=== PATIENT | female | born 1955 | race Caucasian/White ===

== ENCOUNTER 2020-03-13 00:43 | Outpatient (CLI) | payer MEDICARE, SELFPAY ==
[2020-03-13 17:48] LABS: SARS-CoV-2 RNA PCR Negative
== END 2020-03-13 00:44 | disposition home or self-care (01) ==
LOC: ANHCOVIDDT 00:44
PROVIDERS: PCP Family Medicine; Visit Provider Internal Medicine Gastroenterology
DX: Z01.812 Encounter for preprocedural laboratory examination (principal); Z20.828 Contact with and (suspected) exposure to other viral communicable diseases
CPT/HCPCS: 87635; C9803; U0003

== ENCOUNTER 2020-03-16 02:13 | Day surgery (SDC) | payer MEDICARE, SELFPAY ==
[2020-03-09 11:15] VITALS: BMI 31.8
[2020-03-16 07:50] VITALS: BP 145/76; PULSE 95; RESP 16; TEMP 36.7; O2SAT 96; BMI 30.9
[2020-03-16] MEDS: LACTATED RINGERS 1,000 ML 150 ML IV CONT (08:11)
--- NOTE | 2020-03-16 08:11 | WPDANESEPPF ---
Anes - Initial Pre Proc Eval Procedure: Operation Date: 03/16/20 09:00 Proposed Procedures p Screening Colonoscopy - Sven Elizondo MD Date/Time: 03/16/20 08:11 Surgeon: Sven Elizondo MD Pre Op Diagnosis: hx of colon polyps Patient Data Age: 64 Gender: F Height: 5 ft 4 in Weight: 81.6 kg Last Vital Signs Temp 98.0 F 03/16/20 07:50 Pulse 95 03/16/20 07:50 Resp 16 03/16/20 07:50 BP 145/76 H 03/16/20 07:50 Pulse Ox 96 03/16/20 07:50 Allergies Allergy/AdvReac Type Severity Reaction Status Date / Time No Known Allergies Allergy Verified 03/16/20 07:49 Home Medications Medication Instructions Recorded Confirmed Type aspirin 81 mg tablet,delayed 81 mg PO DAILY 10/07/19 03/09/20 History release blood sugar diagnostic #10 each 10/07/19 History calcium carbonate 600 mg calcium 600 mg PO DAILY 10/07/19 03/09/20 History (1,500 mg) tablet cholecalciferol (vitamin D3) 50 50 mcg PO DAILY 10/07/19 03/09/20 History mcg (2,000 unit) capsule fenofibrate nanocrystallized 145 145 mg PO DAILY 90 Days #90 tablet 10/07/19 03/09/20 Rx mg tablet hydroxyurea 500 mg capsule 500 mg PO .COMPLEX 10/07/19 03/09/20 History metformin 1,000 mg tablet 1,000 mg PO DAILY #90 tablet 10/07/19 03/09/20 Rx amlodipine 5 mg tablet 5 mg PO DAILY #90 tablet 11/03/19 03/09/20 Rx irbesartan 300 mg tablet 300 mg PO DAILY #90 tablet 02/04/20 03/09/20 Rx irbesartan mg 03/09/20 History Patient hx anesthesia problems: none Family hx anesthesia problems: none PMFSH Past Medical History Medical History (Updated 03/16/20 @ 08:11 by Tommy Meneses MD) Diabetes FH: colon cancer in relative diagnosed at >50 years old father dx'd & @ 77 y/o son dx'd w/ polyps @ 27 y/o H/O adenomatous polyp of colon (~2009) Hypertension Surgical History Surgical History (Updated 11/24/19 @ 10:09 by Malia Hughes, ) H/O breast biopsy x3: late [id number]' last mammogram: Jan 2019: normal H/O hysterectomy with oophorectomy (~1999) S/P cholecystectomy (~1998) Family History Family History (Updated 11/24/19 @ 10:14 by Malia Hughes, ) Father Carcinoma of colon Sibling , @ 22 y/o Non-Hodgkin's lymphoma, Onset Age: 22 in year of dx 1985 Sibling , dx'd & @ 42 y/o Esophageal cancer Sibling Diabetes mellitus Colon polyp Leukemia, chronic brother: since 2011 Social History Social History (Updated 11/24/19 @ 10:19 by Malia HughesMD) Social History: shingrix (done) hep C (-) pcv 13/ppsv23 (done) tdap (2016) yearly flu vaccine Smoking status: Never smoker Alcohol intake: current Drinks per week: 1 Substance use: never Substance use type: does not use Living arrangements: with family Additional occupation/education comments: education: 40(+): HS x12 years, then community college: math: then administration: GED Gender identity (if verbalized by the patient): Female Sexual Orientation (if Verbalized by the Patient): Straight or Heterosexual Spiritual care concerns: No Agree to blood products: Yes Anes - Eval Final PreProcedure Day of Procedure 03/16/20 08:11 Patient weight: obese Heart: regular rate and rhythm Lungs: clear to auscultation Airway: Mallampati scale class II Neurological: alert and oriented Last oral intake: >/= 8 hours ASA classification: III Emergent: no Anesthetic plan: proceed Anesthesia type and monitoring: general GIVS and standard monitoring Informed Consent: The patient's anesthetic plan and its attendant risks and benefits were discussed with the patient/family/POA. Questions were solicited and answers provided to the satisfaction of the patient/family/POA.
[2020-03-16 08:12] LABS: Glucose Point of Care 157 (65-105)
--- NOTE | 2020-03-16 08:15 | WPDGICN ---
Assessment and Plan Assessment and plan (1) Family history of colon cancer in father: Code(s): Z80.0 - Family history of malignant neoplasm of digestive organs Status: Acute Assessment and Plan: Patient's father had colon cancer. Patient herself has had colon polyps in her son has had colon polyps. For these reasons surveillance colonoscopy is recommended now on at least 5 year intervals in the future. Further recommendations will be given after colonoscopy. (2) Family history of colonic polyps: Code(s): Z83.71 - Family history of colonic polyps Status: Acute (3) History of colon polyps: Code(s): Z86.010 - Personal history of colonic polyps Status: Acute GI Consult Note Consult date/time: 03/16/20 08:15 HPI: Reina Downey is a 64 year old female seen in evaluation at the request of Dr Vasquez . patient presents for screening colonoscopy. She herself has had colon polyps by exam 10 years ago. Most recent colonoscopy 5 years ago was unremarkable. Patient states that her weight appetite bowel movements are normal she denies any blood in her stools. Family history is significant that her father had colon cancer. Her son had colon polyps in his 20s. Review of Systems Review of Systems: All systems reviewed & are unremarkable except as noted in HPI and below PMFSH Past Medical History Medical History Diabetes FH: colon cancer in relative diagnosed at >50 years old father dx'd & @ 77 y/o son dx'd w/ polyps @ 27 y/o H/O adenomatous polyp of colon (~2009) Hypertension Surgical History Surgical History H/O breast biopsy x3: late 5255-0003's last mammogram: Jan 2019: normal H/O hysterectomy with oophorectomy (~1999) S/P cholecystectomy (~1998) Family History Family History (Updated 11/24/19 @ 10:14 by Malia Hughes, ) Father Carcinoma of colon Sibling , @ 22 y/o Non-Hodgkin's lymphoma, Onset Age: 22 in year of dx 1985 Sibling , dx'd & @ 42 y/o Esophageal cancer Sibling Diabetes mellitus Colon polyp Leukemia, chronic brother: since 2011 Social History Social History (Updated 11/24/19 @ 10:19 by Malia Hughes, ) Social History: shingrix (done) hep C (-) pcv 13/ppsv23 (done) tdap (2016) yearly flu vaccine Smoking status: Never smoker Alcohol intake: current Drinks per week: 1 Substance use: never Substance use type: does not use Living arrangements: with family Additional occupation/education comments: education: 40(+): HS x12 years, then community college: math: then administration: GED Gender identity (if verbalized by the patient): Female Sexual Orientation (if Verbalized by the Patient): Straight or Heterosexual Spiritual care concerns: No Agree to blood products: Yes Meds Home Medications and Allergies Home Medications Medication Instructions Recorded Confirmed Type aspirin 81 mg tablet,delayed 81 mg PO DAILY 10/07/19 03/09/20 History release blood sugar diagnostic #10 each 10/07/19 History calcium carbonate 600 mg calcium 600 mg PO DAILY 10/07/19 03/09/20 History (1,500 mg) tablet cholecalciferol (vitamin D3) 50 50 mcg PO DAILY 10/07/19 03/09/20 History mcg (2,000 unit) capsule fenofibrate nanocrystallized 145 145 mg PO DAILY 90 Days #90 tablet 10/07/19 03/09/20 Rx mg tablet hydroxyurea 500 mg capsule 500 mg PO .COMPLEX 10/07/19 03/09/20 History metformin 1,000 mg tablet 1,000 mg PO DAILY #90 tablet 10/07/19 03/09/20 Rx amlodipine 5 mg tablet 5 mg PO DAILY #90 tablet 11/03/19 03/09/20 Rx irbesartan 300 mg tablet 300 mg PO DAILY #90 tablet 02/04/20 03/09/20 Rx irbesartan mg 03/09/20 History Allergies Allergy/AdvReac Type Severity Reaction Status Date / Time No Known Allergies Allergy V
[2020-03-16 09:18] VITALS: BP 139/89; PULSE 90; RESP 31; O2SAT 93
[2020-03-16 09:28] VITALS: BP 142/86; PULSE 87; RESP 20; O2SAT 94
[2020-03-16 09:38] VITALS: BP 137/85; PULSE 81; RESP 22; O2SAT 95
== END 2020-03-16 09:58 | disposition home or self-care (01) ==
PROVIDERS: PCP Family Medicine; Visit Provider Internal Medicine Gastroenterology
PROC: 0DJD8ZZ Inspection of Lower Intestinal Tract, Via Natural or Artificial Opening Endoscopic (ICD-10-PCS; CPT 45378; principal; 2020-03-16 09:00)
DX: Z12.11 Encounter for screening for malignant neoplasm of colon (principal); K62.1 Rectal polyp; I10 Essential (primary) hypertension; E66.9 Obesity, unspecified; Z68.30 Body mass index [BMI] 30.0-30.9, adult; K57.30 Diverticulosis of large intestine without perforation or abscess without bleeding; K64.8 Other hemorrhoids; Z80.0 Family history of malignant neoplasm of digestive organs; Z83.71 Family history of colonic polyps
CPT/HCPCS: 45385; 88305; J2704; J7120

== ENCOUNTER 2020-04-01 10:25 | Outpatient (CLI) | payer MEDICARE, SELFPAY ==
--- NOTE | ~2020-04-01 | MM_ITS ---
EXAMINATION: MM screening imelda BI w eliud HISTORY: Screening TECHNIQUE: Craniocaudal and mediolateral oblique 3-D tomosynthesis images were obtained and synthetic 2-D images were generated. CAD analysis was submitted and interpreted. COMPARISON: Comparison to multiple prior studies sequentially, with oldest reviewed study dated 07/16. BREAST PARENCHYMAL COMPOSITION: There are scattered areas of fibroglandular density. FINDINGS: There is no evidence of suspicious mass, calcification, or architectural distortion to sugg est malignancy in either breast. There has been no suspicious interval change. IMPRESSION: 1. No mammographic evidence of malignancy. 2. Recommend routine screening mammography in one year. BI-RADS Category 1: Negative Reviewed, dictated and finalized at location A.
== END 2020-04-01 10:26 | disposition home or self-care (01) ==
PROVIDERS: PCP Family Medicine; Visit Provider Family Medicine
DX: Z12.31 Encounter for screening mammogram for malignant neoplasm of breast (principal)
CPT/HCPCS: 77063; 77067

== ENCOUNTER 2020-07-02 07:13 | Outpatient (NON) | payer MEDICARE, SELFPAY ==
[2020-07-02 10:48] LABS: Influenza Control Positive
[2020-07-03 18:46] LABS: SARS-CoV-2 RNA PCR Negative
== END 2020-07-02 07:14 ==
LOC: ANHCOVIDDT 07:13
PROVIDERS: PCP Family Medicine; Visit Provider Family Medicine
DX: Z20.822 Contact with and (suspected) exposure to COVID-19 (principal); R50.9 Fever, unspecified
CPT/HCPCS: 87804; C9803; U0003; U0005

== ENCOUNTER 2021-06-13 09:11 | Outpatient (CLI) | payer MEDICARE, SELFPAY ==
--- NOTE | ~2021-06-13 | MM_ITS ---
EXAMINATION: MM screening imelda BI w eliud HISTORY: Screening TECHNIQUE: Craniocaudal and mediolateral oblique 3-D tomosynthesis images were obtained and synthetic 2-D images were generated. CAD analysis was submitted and interpreted. COMPARISON: Comparison to multiple prior studies sequentially, with oldest reviewed study dated 07/16. BREAST PARENCHYMAL COMPOSITION: There are scattered areas of fibroglandular density. FINDINGS: There is no evidence of suspicious mass, calcification, or architectural distortion to sugg est malignancy in either breast. There has been no suspicious interval change. IMPRESSION: 1. No mammographic evidence of malignancy. 2. Recommend routine screening mammography in one year. BI-RADS Category 1: Negative Reviewed, dictated and finalized at location A. 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
--- NOTE | ~2021-06-13 | DEXA_ITS ---
Bone Density Report Name: ANTOINETTE LANDRY Age: 65 Sex: Female Ethnicity: White Date of : 1955 Indication: osteopenia; height loss; prior fracture; hysterectomy; postmenopausal Referring Provider: Charity Limon Study: Bone densitometry was performed. Exam Date: June 13, 2021 Accession number: [id number] Bone Density: Region BMD T-score Z-score Classification AP Spine (L1-L4) 0.930 -1.1 0.9 Osteopenia Femoral Neck (Left) 0.929 0.7 2.4 Normal Total Hip (Left) 0.925 -0.1 1.2 Normal Total Hip Bilateral Avg 0.905 -0.3 1.0 Normal Femoral Neck (Right) 0.781 -0.6 1.0 Normal Total Hip (Right) 0.884 -0.5 0.9 Normal World Health Organization criteria for BMD impression classify patients as: Normal (T-score at or above -1.0), Osteopenia (T-score between -1.0 and -2.5), or Osteoporosis (T-score at or below -2.5). 10-year Fracture Risk(1): Major Osteoporotic Fracture 12% Hip Fracture 0.7% Reported Risk Factors: [place] (), Neck BMD=0.781, BMI=32.8, previous fracture (1) FRAX(R) Version 3.08. Fracture probability calculated for an untreated patient. Fracture probability may be lower if the patient has received treatment. Previous Exams: Region Exam Age BMD T-score BMD Change BMD Change Date g/cm2 vs Baseline vs Previous AP Spine(L1-L4) 06/13/2021 65 0.930 -1.1 0.005(0.5%)# 0.045(5.0%)* 02/24/2019 63 0.885 -1.5 -0.040(-4.3%)# -0.062(-6.5%)# 01/21/2016 60 0.947 -0.9 0.022(2.4%)# 0.007(0.8%)# 03/28/2013 57 0.940 -1.0 0.015(1.6%)# -0.046(-4.7%)# 01/24/2008 52 0.986 -0.6 0.061(6.6%)* 0.061(6.6%)* 12/09/2004 49 0.925 -1.1 Total Hip(Left) 06/13/2021 65 0.925 -0.1 0.012(1.3%)# -0.043(-4.5%)* 02/24/2019 63 0.968 0.2 0.055(6.1%)# 0.040(4.3%)# 01/21/2016 60 0.928 -0.1 0.015(1.7%)# -0.032(-3.3%)# 03/28/2013 57 0.960 0.1 0.047(5.2%)# 0.019(2.1%)# 01/24/2008 52 0.941 0.0 0.028(3.1%)* 0.028(3.1%)* 12/09/2004 49 0.913 -0.2 Total Hip(Right) 06/13/2021 65 0.884 -0.5 0.024(2.7%)# -0.034(-3.7%)* 02/24/2019 63 0.919 -0.2 0.058(6.7%)# 0.040(4.6%)# 01/21/2016 60 0.878 -0.5 0.018(2.0%)# -0.012(-1.4%)# 03/28/2013 57 0.891 -0.4 0.030(3.5%)# 0.003(0.4%)# 01/24/2008 52 0.887 -0.4 0.027(3.1%) 0.027(3.1%) 12/09/2004 49 0.861 -0.7 *Denotes significance at 95% confidence level, LSC for AP Spine = 0.022 g/cm2, LSC for Total Hip = 0.027 g/cm2 Clinical Information Provided by Patient:
== END 2021-06-13 09:12 | disposition home or self-care (01) ==
LOC: ANHIMG 09:14
PROVIDERS: PCP Family Medicine; Visit Provider Nurse Practitioner
DX: Z12.31 Encounter for screening mammogram for malignant neoplasm of breast (principal); Z78.0 Asymptomatic menopausal state; M85.88 Other specified disorders of bone density and structure, other site
CPT/HCPCS: 77063; 77067; 77080

== ENCOUNTER → 2021-12-06 09:14 | Outpatient (CLI) | payer MEDICARE, SELFPAY ==
--- NOTE | ~2021-12-06 | US_ITS ---
EXAMINATION: US abdomen complete DATE: 12/06/2021 09:39 INDICATION: Polycythemia vera TECHNIQUE: Multiple grayscale and Doppler ultrasound images of the abdomen were obtained. COMPARISON: 07/17/2017 FINDINGS: The head and body of the pancreas are normal. The pancreatic tail is obscured by bowel gas. The liver is normal with normal echogenicity and echotexture. No surface nodularity. Normal hepatope loly flow in the main portal vein. The gallbladder is surgically absent. The common bile duct measures 7 mm. The visualized portions of the aorta and inferior vena cava are normal. The right kidney measures 11.2 x 4.7 x 5.1 cm and contains a 3.3 cm cyst. The left kidney measures 11 .6 x 5 x 5.1 cm and contains a 2 cm cyst. The kidneys demonstrate normal parenchymal echogenicity. Th ere is no hydronephrosis. The spleen measures 14.5 cm. IMPRESSION: 1. Mild splenomegaly Reviewed, dictated and finalized at location A. IMPRESSION: 1. Mild splenomegaly
== END ==
PROVIDERS: PCP Family Medicine; Visit Provider Internal Medicine Medical Oncology
DX: R16.2 Hepatomegaly with splenomegaly, not elsewhere classified (principal); R16.1 Splenomegaly, not elsewhere classified
CPT/HCPCS: 76700

== ENCOUNTER → 2022-08-04 14:50 | Outpatient (CLI) | payer MEDICARE, SELFPAY ==
--- NOTE | ~2022-08-04 | MM_ITS ---
EXAMINATION: MM screening imelda BI w eliud HISTORY: Screening mammogram TECHNIQUE: Craniocaudal and mediolateral oblique 3-D tomosynthesis images were obtained and synthetic 2-D images were generated. CAD analysis was submitted and interpreted. COMPARISON: 06/13/2021, 04/01/2020, 03/06/2019 bilateral screening mammogram examinations BREAST PARENCHYMAL COMPOSITION: The breasts are almost entirely fatty. FINDINGS: There is no evidence of suspicious mass, calcification, or architectural distortion to sugg est malignancy in either breast. There has been no suspicious interval change. IMPRESSION: 1. No mammographic evidence of malignancy. 2. Recommend routine screening mammography in one year. BI-RADS Category 1: Negative Reviewed, dictated and finalized at location A. 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
== END ==
PROVIDERS: PCP Family Medicine; Visit Provider Nurse Practitioner
DX: Z12.31 Encounter for screening mammogram for malignant neoplasm of breast (principal)
CPT/HCPCS: 77063; 77067

== ENCOUNTER 2023-10-22 12:34 | Outpatient (CLI) | payer MEDICARE, SELFPAY ==
--- NOTE | ~2023-10-22 | MM_ITS ---
EXAMINATION: MM screening imelda BI w eliud HISTORY: Screening mammogram TECHNIQUE: Craniocaudal and mediolateral oblique 3-D tomosynthesis images were obtained and synthetic 2-D images were generated. CAD analysis was submitted and interpreted. COMPARISON: August 04, 2022, June 13, 2021 bilateral screening mammogram examinations BREAST PARENCHYMAL COMPOSITION: The breasts are almost entirely fatty. FINDINGS: There is no evidence of suspicious mass, calcification, or architectural distortion to sugg est malignancy in either breast. There has been no suspicious interval change. IMPRESSION: 1. No mammographic evidence of malignancy. 2. Recommend routine screening mammography in one year. BI-RADS Category 1: Negative Reviewed, dictated and finalized at location B.
== END 2023-10-22 12:35 ==
LOC: MICIMG 12:35
PROVIDERS: PCP Nurse Practitioner Family; Visit Provider Nurse Practitioner Family
DX: Z12.31 Encounter for screening mammogram for malignant neoplasm of breast (principal)
CPT/HCPCS: 77063; 77067

== ENCOUNTER 2025-01-14 15:12 | Outpatient (CLI) | payer MEDICARE, SELFPAY ==
--- NOTE | ~2025-01-14 | MM_ITS ---
EXAMINATION: MM screening imelda BI w eliud HISTORY: Screening TECHNIQUE: Craniocaudal and mediolateral oblique 3-D tomosynthesis images were obtained and synthetic 2-D images were generated. CAD analysis was submitted and interpreted. COMPARISON: Comparison to multiple prior studies sequentially, with oldest reviewed study dated 07/16. BREAST PARENCHYMAL COMPOSITION: Not dense: There are scattered areas of fibroglandular density. FINDINGS: There is no evidence of suspicious mass, calcification, or architectural distortion to sugg est malignancy in either breast. There has been no suspicious interval change. IMPRESSION: 1. No mammographic evidence of malignancy. 2. Recommend routine screening mammography in one year. BI-RADS Category 1: Negative Reviewed, dictated and finalized at location B.
--- OUTSIDE RECORDS SUMMARY | 2025-01-14 15:15 | XMS_ITS | Clinical Summary ---
Author Organization [facility] Address [address] [facility] [place] [address] Phone Care Team Providers Care Assembler Utility Buildings Name Role Phone Henrique Vasquez MD Primary Care Provider Pepe Campbell DO Unavailable [phone] Allergies No known active allergies Medications calcium carbonate-vi tamin D3 600 mg calcium- 200 unit capsule 07/18/2017Calcium 500 + d, po solid 500 mg-400 TabletPOdailyCurrent Medication 2017 Active flaxseed 1,000 mg capsule 07/18/2017Flaxseed-fish -borage oil, po solid 400-400 mg CapsulePOdailyCurrent Medication 2017 Active amLODIPine (NORVASC) 10 mg tablet 2017 Active Lactobac no.41-Bifido bact no.7 70 mg (3 billion cell) capsule 2017 Active turmeric-her bal complex no.278 150 mg capsule 07/18/2017Turmeric (curcumin), po solid Capsule(s)POdailyCurren t Medication 2017 Active cholecalcife rol (VITAMIN D-3) 400 unit capsule 07/18/2017Vitamin d, po solid 400 unit TabletPOdailyCurrent Medication 2017 Active Accu-Chek SmartView Test Strip strip USE ONE STRIP TO CHECK LEVELS DAILY 2019 Active metoprolol XL (TOPROL-XL) 100 mg 24 hr tablet Take 1 tablet (100 mg total) by mouth daily 2020 Active aspirin 81 mg enteric coated tablet Take by mouth Active metFORMIN XR (GLUCOPHAGE XR) 500 mg 24 hr tablet Take 2 tablets (1,000 mg total) by mouth 2 (two) times a day 2023 Active hydroxyurea (HYDREA) 500 mg capsule TAKE 2 CAPSULES (1,000 MG TOTAL) BY MOUTH DAILY 180 capsule 1 2024 Active hydroxyurea (HYDREA) 500 mg capsule Take 2 capsules (1,000 mg total) by mouth daily 180 capsule 1 01/12 Discontinued Active Problems Problem Noted Date Diagnosed Date Essential hypertension 10/15/2018 Polycythemia vera 11/30/2017 Polycythemia 10/30/2017 Overview (10/30/2017): Dx 09/2009 intermittent phlebotomies Q 3 months with daily low dose aspirin therapy Abnormal liver function tests 11/16/2014 Type 2 diabetes mellitus 11/16/2014 Encounters Date Type Department Care Team Description 12/03/2024 2:00 PM CDT Lab [facility] at [address] [address] Polycythemia vera (HCC) 11/05/2024 2:30 PM CDT Infusion [facility] [place] at [address] [place] [address] Polycythemia (Primary Dx); Polycythemia vera (HCC) 11/05/2024 2:00 PM CDT Lab [facility] [address] [address] Polycythemia vera (HCC) from Last 3 Months Immunizations Immunization Administration Dates Next Due Influenza, Trivalent, Adjuva nted, Intramuscular 04/01/2019 Influenza, Unspecified 03/23/2021,2019,04/19/2018,04/05,04/05/2016,04/05/2015 Moderna SARS-CoV-2 Monovalen t Vaccination (12+ YRS) 04/12/2021,09/06/2020,08/04/2020 Pneumococcal Conjugate, Unspecified 04/05/2017,1 ZOSTER LIVE 04/05/2015 ZOSTER Recombinant 04/28/2019 Surgical History Surgery Date Site/Laterality Comments CHOLECYSTECTOMY HYSTERECTOMY BREAST BIOPSY COLONOSCOPY Medical History Medical History Date Comments Polycythemia rubra vera (HCC) Diabetes mellitus (HCC) pre diab etic Hypertension Family History Medical History Relation Name Comments Esophageal cancer Brother Colon cancer Father Diabetes Mother Stomach cancer Paternal Grandmother Non-Hodgkin's Lymphoma Sister Relation Name Status Comments Brother Father Mother Paternal Grandmother Sister Social History Tobacco Use Types Packs/Day Years Used Date Smoking Tobacco: Former Cigarettes 0.3 15 1 549 - 1973 Smokeless Tobacco: Never Tobacco Cessation:Counseling Given: Yes Alcohol Use Standard Drinks/Week Comments Yes 0 (1 standard drink = 0.6 oz pur e alcohol) rarely AUDIT-C Answer Date Recorded Q1: How often do you have a drink containing alcohol? Never 11/30/2023 Q2: How many drinks containi ng alcohol do you have on a typical day when you are drinking? Patient does not drink Q3: How often do you have si x or more drinks on one occasion? Never 11/30/2023 Comments Unknown Sex and Gender Information Value Date Recorded Sex Assigned at Not on file Legal Sex Female 8:08 AM CDT Gender Identity Female 12/04/2017 7:44 AM CDT Sexual Orientation Not on file Obstetrics History Last Filed Vital Signs Vital Sign Reading Time Taken Comments Blood Pressure 130/70 11/05/2024 3:12 PM CDT Pulse 67 11/05/2024 3:12 PM CDT Temperature 37.3 C (99.1 F) 11/05/2024 3:12 PM CDT Respiratory Rate 18 11/05/2024 3:12 PM CDT Oxygen Saturation 97% 11/05/2024 3:12 PM CDT Inhaled Oxygen Concentration - - Weight 82.4 kg (181 lb 9.6 oz) 10/08/2024 2:13 P M CDT w/shoes Height 160.7 cm (5' 3.25) 06/20/2024 2:10 PM CS T w/o shoes Body Mass Index 31.92 06/20/2024 2:10 PM WEATHER ANCHOR Plan of Treatment Health Maintenance Due Date Last Done Comments Colon Cancer Screening-Colonoscopy 1955 Depression Screening 1953 Fall Risk Assessment 1955 Hepatitis C Screening 1955 Osteoporosis Screening-Bone Density Scan 1955 Dilated Eye Exam 1953 Foot Exam 1953 DTaP/Tdap/Td Vaccine (1 - Tdap) 1964 Hepatitis B Screening 10/25/1971 Breast Cancer Screening-Mammogram 04/18/2017 04/18/2016, 04/18/2016, 04/13/2015, Additional history exists Pneumococcal vaccine 65+ (2 of 2 - PPSV23) 05/31/2017 04/05/2017, 04/05/2016 Well Visit 65+ 2018 Zoster Vaccine (2 of 2) 06/23/2019 04/28/2019, 04/05 Hemoglobin A1C 12/27/2022 06/29/2022 Albumin Creatinine Ratio, Urine 06/29/2023 3 Lipid Panel 06/29/2023 06/29/2022 eGFR 06/29/2023 06/29/2022, 04/2 12/2021, 08/31/2021, Additional history exists Covid-19 Vaccine (2023-2 5 season) 2024 04/12/2021, 09/06/2020, 08/04/2020 Influenza Vaccine (#1) 2025 , 03/19/2020, 04/01/2019, Additional history exists Procedures Procedure Name Priority Date/Time Associated Diagnosis Comments DIFFERENTIAL AUTO Routine 12/03/2024 2:0 6 PM CDT Polycythemia vera (HCC) CBC WITH AUTO DIFFERENTIAL Routine 12/03/2024 2:06 PM CDT Polycythemia vera (HCC) DIFFERENTIAL AUTO Routine 11/05/2024 1:5 9 PM CDT Polycythemia vera (HCC) CBC WITH AUTO DIFFERENTIAL Routine 11/05/2024 1:59 PM CDT Polycythemia vera (HCC) COMPREHENSIVE METABOLIC PANEL Routine 06/29/2022 9:04 AM WEATHER ANCHOR HEMOGLOBIN A1C Routine 06/29/2022 9:04 AM WEATHER ANCHOR LIPID PANEL Routine 06/29/2022 9:04 AM WEATHER ANCHOR ALBUMIN CREATININE RATIO, URINE Routine 06/29/2022 9:04 AM WEATHER ANCHOR from Last 3 Months or Most Recently Relevant to Health Maintenance Results * Differential, auto (12/03/2024 2:06 PM CDT) Neutrophil abs 6.43 1.50 - 6.50 K/[facility]umm Comment:Testing performed by : [address] [address] Imm gran abs 0.04 0.00 - 0.10 K/cumm [facility] Comment:Testing performed by : [address] [address] Lymphocyte abs 0.96 0.80 - 3.30 K/cumm [facility] Comment:Testing performed by : [address] [address] Monocyte abs 0.25 0.20 - 0.80 K/cumm [facility] Comment:Testing performed by : [address] [address] Eosinophil abs 0.18 0.00 - 0.50 K/cumm [facility] Comment:Testing performed by : [address] [address] Basophil abs 0.04 0.00 - 0.10 K/cumm [facility] Comment:Testing performed by : [address] [address] Neutrophil pct 81.3 % [facility] Comment: Interpretive Data Percent cell count reference ranges are not reported, since discordance with absolute values may lead to misinterpretation of CBC data. Current Interpretive Data was last revised on 2017. Testing performed by: [address] [address] Imm gran pct 0.5 % [facility] Comment: Interpretive Data Percent cell count reference ranges are not reported, since discordance with absolute values may lead to misinterpretation of CBC data. Current Interpretive Data was last revised on 2017. Testing performed by: [address] [address] Lymphocyte pct 12.2 % [facility] Comment: Interpretive Data Percent cell count reference ranges are not reported, since discordance with absolute values may lead to misinterpretation of CBC data. Current Interpretive Data was last revised on 2017. Testing performed by: [address] [address] Monocyte pct 3.2 % [facility] Comment: Interpretive Data Percent cell count reference ranges are not reported, since discordance with absolute values may lead to misinterpretation of CBC data. Current Interpretive Data was last revised on 2017. Testing performed by: [address] [address] Eosinophil pct 2.3 % [facility] Comment: Interpretive Data Percent cell count reference ranges are not reported, since discordance with absolute values may lead to misinterpretation of CBC data. Current Interpretive Data was last revised on 2017. Testing performed by: [address] [address] Basophil pct 0.5 % [facility] Comment: Interpretive Data Percent cell count reference ranges are not reported, since discordance with absolute values may lead to misinterpretation of CBC data. Current Interpretive Data was last revised on 2017. Testing performed by: [address] [address] Blood 12/03/2024 2:06 PM CDT 12/03/2024 2:10 PM CDT us Pepe Campbell DO LAB BLOOD ORDERABLES Final R esult [facility] [address] [facility] [place] [address] * (ABNORMAL) CBC with auto differential (12/03/2024 2:06 PM CDT) WBC 7.90 3.80 - 9.90 [facility] Comment:Testing performed by : [address] [address] Hgb 11.7(L) 11.9 - 15.5 g/dL [facility] Comment:Testing performed by : [address] [address] Hct 41.5 35.6 - 45.5 % [facility] Comment:Testing performed by : [address] [address] Plt 273 150 - 400 K/cumm [facility] Comment:Testing performed by : [address], [address] MPV 9.2 9.1 - 12.3 fL [facility] Comment:Testing performed by : [address], [address] RBC 5.74(H) 3.90 - 5.20 M/cumm [facility] Comment:Testing performed by : [address] [address] MCV 72.3(L) 81.3 - 96.4 fL [facility] Comment:Testing performed by : [address] [address] MCH 20.4(L) 27.1 - 33.3 pg [facility] Comment:Testing performed by : [address] [address] MCHC 28.2(L) 32.3 - 35.7 g/dL [facility] Comment:Testing performed by : [address], [address] RDW CV 18.6(H) 11.1 - 14.9 % [facility] Comment:Testing performed by : [address] [address] RDW SD 44.7 35.7 - 48.1 fL [facility] Comment:Testing performed by : [address] [address] NRBC abs 0.00 0.00 - 0.01 K/cumm [facility] Comment:Testing performed by : [address], [address] ANC Prelim 6.43 1.50 - 6.50 K/cumm [facility] Comment: Interpretive Data The rapid ANC is a preliminary automated count and may vary from the final ANC (Neut Abs) reported in the WBC differential that follows. Current interpretive data was last revised 2024. Testing performed by: [address] [address] Blood 12/03/2024 2:06 PM CDT 12/03/2024 2:10 PM CDT us Pepe Campbell DO LAB BLOOD ORDERABLES Final R esult [facility] [address] [facility] Department [place] [address] * Differential, auto (11/05/2024 1:59 PM CDT) Neutrophil abs 6.39 1.50 - 6.50 [facility] Comment:Testing performed by : [address] [address] Imm gran abs 0.03 0.00 - 0.10 K/cumm [facility] Comment:Testing performed by : [address] [address] Lymphocyte abs 1.15 0.80 - 3.30 K/cumm [facility] Comment:Testing performed by : [address] [address] Monocyte abs 0.35 0.20 - 0.80 K/cumm [facility] Comment:Testing performed by : [address] [address] Eosinophil abs 0.23 0.00 - 0.50 K/cumm [facility] Comment:Testing performed by : [address] [address] Basophil abs 0.04 0.00 - 0.10 K/cumm [facility] Comment:Testing performed by : [address] [address] Neutrophil pct 78.0 % [facility] Comment: Interpretive Data Percent cell count reference ranges are not reported, since discordance with absolute values may lead to misinterpretation of CBC data. Current Interpretive Data was last revised on 2017. Testing performed by: [address] [address] Imm gran pct 0.4 % [facility] Comment: Interpretive Data Percent cell count reference ranges are not reported, since discordance with absolute values may lead to misinterpretation of CBC data. Current Interpretive Data was last revised on 2017. Testing performed by: [address] [address] Lymphocyte pct 14.0 % [facility] Comment: Interpretive Data Percent cell count reference ranges are not reported, since discordance with absolute values may lead to misinterpretation of CBC data. Current Interpretive Data was last revised on 2017. Testing performed by: [address] [address] Monocyte pct 4.3 % [facility] Comment: Interpretive Data Percent cell count reference ranges are not reported, since discordance with absolute values may lead to misinterpretation of CBC data. Current Interpretive Data was last revised on 2017. Testing performed by: [address] [address] Eosinophil pct 2.8 % [facility] Comment: Interpretive Data Percent cell count reference ranges are not reported, since discordance with absolute values may lead to misinterpretation of CBC data. Current Interpretive Data was last revised on 2017. Testing performed by: [address] [address] Basophil pct 0.5 % [facility] Comment: Interpretive Data Percent cell count reference ranges are not reported, since discordance with absolute values may lead to misinterpretation of CBC data. Current Interpretive Data was last revised on 2017. Testing performed by: [address] [address] Blood 11/05/2024 1:59 PM CDT 11/05/2024 2:04 PM CDT us Pepe Campbell DO LAB BLOOD ORDERABLES Final R esult [facility] [address] [facility] Department [place] [address] * (ABNORMAL) CBC with auto differential (11/05/2024 1:59 PM CDT) [facility] Signature WBC 8.19 3.80 - 9.90 [facility] Comment:Testing performed by : [address] [address] Hgb 12.4 11.9 - 15.5 g/dL [facility] Comment:Testing performed by : [address], [address] Hct 43.6 35.6 - 45.5 % [facility] Comment:Testing performed by : [address] [address] Plt 220 150 - 400 K/cumm [facility] Comment:Testing performed by : [address] [address] MPV 9.9 9.1 - 12.3 fL [facility] Comment:Testing performed by : [address] [address] RBC 6.10(H) 3.90 - 5.20 M/cumm [facility] Comment:Testing performed by : [address] [address] MCV 71.5(L) 81.3 - 96.4 fL [facility] Comment:Testing performed by : [address] [address] MCH 20.3(L) 27.1 - 33.3 pg [facility] Comment:Testing performed by : [address] [address] MCHC 28.4(L) 32.3 - 35.7 g/dL [facility] Comment:Testing performed by : [address] [address] RDW CV 19.1(H) 11.1 - 14.9 % [facility] Comment:Testing performed by : [address], [address] RDW SD 44.6 35.7 - 48.1 fL [facility] Comment:Testing performed by : [facility], [address] [place] [address]., [address] NRBC abs 0.00 0.00 - 0.01 K/cumm [facility] Comment:Testing performed by : [address] [address] ANC Prelim 6.39 1.50 - 6.50 K/cumm [facility] Comment: Interpretive Data The rapid ANC is a preliminary automated count and may vary from the final ANC (Neut Abs) reported in the WBC differential that follows. Current interpretive data was last revised 2024. Testing performed by: [address] [address] Blood 11/05/2024 1:59 PM CDT 11/05/2024 2:04 PM CDT Pepe Campbell DO LAB BLOOD ORDERABLES Final R esult [facility] [address] [facility] Department [place] [address] * (ABNORMAL) Albumin Creatinine Ratio, Urine (06/29/2022 9:04 AM WEATHER ANCHOR) Pathologist [facility] Creatinine, ur 40 20 - 275 mg/dL [facility] Microalbumin, ur 6.5 See Note: mg/dL [facility] Comment: Reference Range: Reference Range Not established Microalbumin/creat ratio 163(H) <30 mcg/mg creat [facility] Comment: The ADA defines abnormalities in albumin excretion as follows: Albuminuria Category Result (mcg/mg creatinine) Normal to Mildly increased <30 Moderately increased 30-299 Severely increased > OR = 300 The ADA recommends that at least two of three specimens collected within a 3-6 month period be abnormal before considering a patient to be within a diagnostic category. 06/29/2022 9:04 AM WEATHER ANCHOR 06/29/2022 9:06 AM WEATHER ANCHOR Narrative [facility] - 06/30/2022 12:50 PM WEATHER ANCHOR FASTING:YES FASTING: YES us Charity Limon FOREST SCIENCE PROFESSOR LAB URINE ORDERABLES Final Res ult [facility] [address] [phone] * (ABNORMAL) Hemoglobin A1c (06/29/2022 9:04 AM WEATHER ANCHOR) Hgb A1C 6.4(H) <5.7 % of total Hgb [facility] Comment: For someone without known diabetes, a hemoglobin A1c value between 5.7% and 6.4% is consistent with prediabetes and should be confirmed with a follow-up test. For someone with known diabetes, a value <7% indicates that their diabetes is well controlled. A1c targets should be individualized based on duration of diabetes, age, comorbid conditions, and other considerations. This assay result is consistent with an increased risk of diabetes. Currently, no consensus exists regarding use of hemoglobin A1c for diagnosis of diabetes for children. 06/29/2022 9:04 AM WEATHER ANCHOR 06/29/2022 9:06 AM WEATHER ANCHOR Narrative [facility] - 06/30/2022 12:50 PM WEATHER ANCHOR FASTING:YES FASTING: YES Charity Limon FOREST SCIENCE PROFESSOR LAB BLOOD ORDERABLES Final Res ult Performing Organization Address City/[facility]/ZIP Co de Phone Number [facility] [address] [place] [address] * (ABNORMAL) Lipid panel (06/29/2022 9:04 AM WEATHER ANCHOR) Cholesterol 142 <200 mg/dL [facility] HDL 37(L) > OR = 50 mg/dL [facility] Triglycerides 128 <150 mg/dL [facility] LDL 83 mg/dL (calc) [facility] Comment: Reference range: <100 Desirable range <100 mg/dL for primary prevention; <70 mg/dL for patients with CHD or diabetic patients with > or = 2 CHD risk factors. LDL-C is now calculated using the Priscilla calculation, which is a validated novel method providing better accuracy than the Friedewald equation in the estimation of LDL-C. Luke PEREZ et al. CRISTINA. 2013;310(19): 2891-6472 (http://education.[employer]/faq/BJT805) Chol/HDL ratio 3.8 <5.0 (calc) [facility] Non-HDL, (LDL+VLDL) 105 <130 mg/dL (calc) [facility] Comment: For patients with diabetes plus 1 major ASCVD risk factor, treating to a non-HDL-C goal of <100 mg/dL (LDL-C of <70 mg/dL) is considered a therapeutic option. 06/29/2022 9:04 AM WEATHER ANCHOR 06/29/2022 9:06 AM WEATHER ANCHOR Narrative [facility] - 06/30/2022 12:50 PM WEATHER ANCHOR FASTING:YES FASTING: YES us Charity Limon NP LAB BLOOD ORDERABLES Final Res ult [facility] [address] [place] [address] * (ABNORMAL) Comprehensive metabolic panel (06/29/2022 9:04 AM WEATHER ANCHOR) Glucose 117(H) 65 - 99 mg/dL [facility] Comment: Fasting reference interval For someone without known diabetes, a glucose value between 100 and 125 mg/dL is consistent with prediabetes and should be confirmed with a follow-up test. BUN 12 7 - 25 mg/dL [facility] Creatinine 0.48(L) 0.50 - 1.05 mg/dL [facility] eGFR 103 > OR = 60 mL/min/1.7 3m2 [facility] Comment: The eGFR is based on the CKD-EPI 2020 equation. To calculate the new eGFR from a previous Creatinine or Cystatin C result, go to https://www.kidney.org/professionals/ kdoqi/gfr%5Fcalculator BUN/creat ratio 25(H) 6 - 22 (calc) [facility] Sodium 140 135 - 146 mmol/L [facility] Potassium, pl 3.7 3.5 - 5.3 mmol/L [facility] Chloride 102 98 - 110 mmol/L [facility] CO2 28 20 - 32 mmol/L [facility] Calcium 8.7 8.6 - 10.4 mg/dL [facility] Protein, sr 6.9 6.1 - 8.1 g/dL [facility] Albumin 4.9 3.6 - 5.1 g/dL [facility] GLOBULIN 2.0 1.9 - 3.7 g/dL (calc) [facility] Alb/glob ratio 2.5 1.0 - 2.5 (calc) [facility] Bilirubin, total 0.7 0.2 - 1.2 mg/dL [facility] Alk phos 102 37 - 153 U/L [facility] AST 54(H) 10 - 35 U/L [facility] ALT (SGPT) 115(H) 6 - 29 U/L [facility] 06/29/2022 9:04 AM WEATHER ANCHOR 06/29/2022 9:06 AM WEATHER ANCHOR Narrative [facility] - 06/30/2022 12:50 PM WEATHER ANCHOR FASTING:YES FASTING: YES Charity Limon NP LAB BLOOD ORDERABLES Final Res ult [facility] [address] [phone] from Last 3 Months or Most Recently Relevant to Health Maintenance Insurance [facility] MEDICARE ADVANTAGE [facility] MEDICARE ADVANTAGE Care Teams Assembler Utility Buildings Relationship Specialty Start Date End Date Henrique Vasquez MD PCP - General Family Practice 06/15/20 Pepe Campbell DO [address] [place] [id number] Medical Oncologist/Mouthpiece Maker Hematology and Oncology 01/27/22
--- OUTSIDE RECORDS SUMMARY | 2025-01-14 15:15 | XMS_ITS | Referral Summary ---
Author Organization [facility] Address [address] [place] [address] Phone Care Team Providers Care Electronic Resources Librarian Name Role Phone Henrique Vasquez MD Primary Care Provider Pepe Campbell DO Unavailable [phone] Encounters Date Type Department Care Team Description 12/03/2024 2:00 PM CDT Lab [facility] at [address] [phone] Polycythemia vera (HCC) 11/05/2024 2:00 PM CDT Lab [facility] at [address] [phone] Polycythemia vera (HCC) 11/05/2024 2:30 PM CDT Infusion [facility] [place] at [address] [place] [address] Polycythemia (Primary Dx); Polycythemia vera (HCC) from Last 3 Months Allergies No known active allergies Medications calcium [...] tests 11/16/2014 Type 2 diabetes mellitus 11/16/2014 Immunizations Immunization Administration Dates Next Due Influenza, Trivalent, Adjuva nted, Intramuscular 04/01/2019 Influenza, Unspecified 03/23/2021,2019,04/19/2018,04/05,04/05/2016,04/05/2015 Moderna SARS-CoV-2 Monovalen t Vaccination (12+ YRS) 04/12/2021,09/06/2020,08/04/2020 Pneumococcal Conjugate, Unspecified 04/05/2017,1 ZOSTER LIVE 04/05/2015 ZOSTER Recombinant 04/28/2019 Social History Tobacco Use Types Packs/Day Years Used Date Smoking Tobacco: Former Cigarettes 0.3 15 1 819 - 9560 Smokeless Tobacco: Never Tobacco Cessation:Counseling Given: Yes [...] AM CDT Sexual Orientation Not on file Last Filed Vital Signs Vital Sign Reading [...] Body Mass Index 31.92 06/20/2024 2:10 PM CATTLE SORTER Plan of Treatment Not on file Procedures Procedure Name Priority Date/Time Associated Diagnosis Comments DIFFERENTIAL AUTO Routine 12/03/2024 2:0 6 PM CDT Polycythemia vera (HCC) CBC WITH AUTO DIFFERENTIAL Routine 12/03/2024 2:06 PM CDT Polycythemia vera (HCC) DIFFERENTIAL AUTO Routine 11/05/2024 1:5 9 PM CDT Polycythemia vera (HCC) CBC WITH AUTO DIFFERENTIAL Routine 11/05/2024 1:59 PM CDT Polycythemia vera (HCC) COMPREHENSIVE METABOLIC PANEL Routine 06/29/2022 9:04 AM CATTLE SORTER HEMOGLOBIN A1C Routine 06/29/2022 9:04 AM CATTLE SORTER LIPID PANEL Routine 06/29/2022 9:04 AM CATTLE SORTER ALBUMIN CREATININE RATIO, URINE Routine 06/29/2022 9:04 AM CATTLE SORTER from Last 3 Months or Most Recently Relevant to Health Maintenance Results * Differential, auto (12/03/2024 2:06 PM CDT) Pathologist [facility] Neutrophil abs 6.43 1.50 - 6.50 K/cumm Comment:Testing performed by : [address] [address] Imm gran abs 0.04 0.00 - 0.10 K/cumm [facility] Comment:Testing performed by : [address] [address] Lymphocyte abs 0.96 0.80 - 3.30 K/cumm [facility] Comment:Testing performed by : [address] [address] Monocyte abs 0.25 0.20 - 0.80 K/cumm [facility] Comment:Testing performed by : [address] [address] Eosinophil abs 0.18 0.00 - 0.50 K/cumm [facility] Comment:Testing performed by : [address] [address] Basophil abs 0.04 0.00 - 0.10 K/cumm [facility] Comment:Testing performed by : [address] [address] Neutrophil pct 81.3 % [facility] Comment: Interpretive Data Percent cell count reference ranges are not reported, since discordance with absolute values may lead to misinterpretation of CBC data. Current Interpretive Data was last revised on 2017. Testing performed by: [address] [address] Imm gran pct 0.5 % [facility] Comment: Interpretive Data Percent cell count reference ranges are not reported, since discordance with absolute values may lead to misinterpretation of CBC data. Current Interpretive Data was last revised on 2017. Testing performed by: [address] [address] Lymphocyte pct 12.2 % [facility] Comment: Interpretive Data Percent cell count reference ranges are not reported, since discordance with absolute values may lead to misinterpretation of CBC data. Current Interpretive Data was last revised on 2017. Testing performed by: [address] [address] Monocyte pct 3.2 % [facility] Comment: Interpretive Data Percent cell count reference ranges are not reported, since discordance with absolute values may lead to misinterpretation of CBC data. Current Interpretive Data was last revised on 2017. Testing performed by: [address] [address] Eosinophil pct 2.3 % [facility] Comment: Interpretive Data Percent cell count reference ranges are not reported, since discordance with absolute values may lead to misinterpretation of CBC data. Current Interpretive Data was last revised on 2017. Testing performed by: [address] [address] Basophil pct 0.5 % [facility] Comment: Interpretive Data Percent cell count reference ranges are not reported, since discordance with absolute values may lead to misinterpretation of CBC data. Current Interpretive Data was last revised on 2017. Testing performed by: [address] [address] Blood 12/03/2024 2:06 PM CDT 12/03/2024 2:10 PM CDT Pepe Campbell DO LAB BLOOD ORDERABLES Final R esult [facility] [address] [place] [address] * (ABNORMAL) CBC with auto differential (12/03/2024 2:06 PM CDT) [facility] WBC 7.90 3.80 - 9.90 K/cumm Comment:Testing performed by : [address] [address] Hgb 11.7(L) 11.9 - 15.5 g/dL [facility] Comment:Testing performed by : [address] [address] Hct 41.5 35.6 - 45.5 % [facility] Comment:Testing performed by : [address] [address] Plt 273 150 - 400 K/cumm [facility] Comment:Testing performed by : [address] [address] MPV 9.2 9.1 - 12.3 fL [facility] Comment:Testing performed by : [address] [address] RBC 5.74(H) 3.90 - 5.20 M/cumm [facility] Comment:Testing performed by : [address] [address] MCV 72.3(L) 81.3 - 96.4 fL [facility] Comment:Testing performed by : [address] [address] MCH 20.4(L) 27.1 - 33.3 pg [facility] Comment:Testing performed by : [address] [address] MCHC 28.2(L) 32.3 - 35.7 g/dL [facility] Comment:Testing performed by : [address] [address] RDW CV 18.6(H) 11.1 - 14.9 % [facility] Comment:Testing performed by : [address] [address] RDW SD 44.7 35.7 - 48.1 fL [facility] Comment:Testing performed by : [address] [address] NRBC abs 0.00 0.00 - 0.01 K/cumm [facility] Comment:Testing performed by : [address] [address] ANC Prelim 6.43 1.50 - 6.50 K/cumm [facility] Comment: Interpretive Data The rapid ANC is a preliminary automated count and may vary from the final ANC (Neut Abs) reported in the WBC differential that follows. Current interpretive data was last revised 2024. Testing performed by: [address] [address] Blood 12/03/2024 2:06 PM CDT 12/03/2024 2:10 PM CDT Pepe Campbell DO LAB BLOOD ORDERABLES Final R esult [facility] [place] [address] * Differential, auto (11/05/2024 1:59 PM CDT) Pathologist [facility] Neutrophil abs 6.39 1.50 - 6.50 K/cumm Comment:Testing performed by : [address] [address] Imm gran abs 0.03 0.00 - 0.10 K/cumm [facility] Comment:Testing performed by : [address] [address] Lymphocyte abs 1.15 0.80 - 3.30 K/cumm [facility] Comment:Testing performed by : [address] [address] Monocyte abs 0.35 0.20 - 0.80 K/cumm [facility] Comment:Testing performed by : [address] [address] Eosinophil abs 0.23 0.00 - 0.50 K/cumm [facility] Comment:Testing performed by : [address] [address] Basophil abs 0.04 0.00 - 0.10 K/cumm [facility] Comment:Testing performed by : [address] [address] Neutrophil pct 78.0 % [facility] Comment: Interpretive Data Percent cell count reference ranges are not reported, since discordance with absolute values may lead to misinterpretation of CBC data. Current Interpretive Data was last revised on 2017. Testing performed by: [address] [address] Imm gran pct 0.4 % [facility] Comment: Interpretive Data Percent cell count reference ranges are not reported, since discordance with absolute values may lead to misinterpretation of CBC data. Current Interpretive Data was last revised on 2017. Testing performed by: [address] [address] Lymphocyte pct 14.0 % [facility] Comment: Interpretive Data Percent cell count reference ranges are not reported, since discordance with absolute values may lead to misinterpretation of CBC data. Current Interpretive Data was last revised on 2017. Testing performed by: [address] [address] Monocyte pct 4.3 % [facility] Comment: Interpretive Data Percent cell count reference ranges are not reported, since discordance with absolute values may lead to misinterpretation of CBC data. Current Interpretive Data was last revised on 2017. Testing performed by: [address] [address] Eosinophil pct 2.8 % [facility] Comment: Interpretive Data Percent cell count reference ranges are not reported, since discordance with absolute values may lead to misinterpretation of CBC data. Current Interpretive Data was last revised on 2017. Testing performed by: [address] [address] Basophil pct 0.5 % [facility] Comment: Interpretive Data Percent cell count reference ranges are not reported, since discordance with absolute values may lead to misinterpretation of CBC data. Current Interpretive Data was last revised on 2017. Testing performed by: [address] [address] Blood 11/05/2024 1:59 PM CDT 11/05/2024 2:04 PM CDT Pepe Campbell DO LAB BLOOD ORDERABLES Final R esult [facility] [address] [facility] Department [place] [address] * (ABNORMAL) CBC with auto differential (11/05/2024 1:59 PM CDT) Pathologist [facility] WBC 8.19 3.80 - 9.90 K/cumm Comment:Testing performed by : [address] [address] Hgb 12.4 11.9 - 15.5 g/dL [facility] Comment:Testing performed by : [address] [address] Hct 43.6 35.6 - 45.5 % [facility] Comment:Testing performed by : [address] [address] Plt 220 150 - 400 K/cumm [facility] Comment:Testing performed by : [address] [address] MPV 9.9 9.1 - 12.3 fL [facility] Comment:Testing performed by : [address] [address] RBC 6.10(H) 3.90 - 5.20 M/cumm [facility] Comment:Testing performed by : [address] [address] MCV 71.5(L) 81.3 - 96.4 fL [facility] Comment:Testing performed by : [address] [address] MCH 20.3(L) 27.1 - 33.3 pg [facility] Comment:Testing performed by : [address] [address] MCHC 28.4(L) 32.3 - 35.7 g/dL [facility] Comment:Testing performed by : [address] [place]., [address] RDW CV 19.1(H) 11.1 - 14.9 % [facility] Comment:Testing performed by : [address] [address] RDW SD 44.6 35.7 - 48.1 fL [facility] Comment:Testing performed by : [address] [address] NRBC abs 0.00 0.00 - 0.01 K/cumm [facility] Comment:Testing performed by : [address] [address] ANC Prelim 6.39 1.50 - 6.50 K/cumm [facility] Comment: Interpretive Data The rapid ANC is a preliminary automated count and may vary from the final ANC (Neut Abs) reported in the WBC differential that follows. Current interpretive data was last revised 2024. Testing performed by: [address] [address] Blood 11/05/2024 1:59 PM CDT 11/05/2024 2:04 PM CDT Pepe Campbell DO LAB BLOOD ORDERABLES Final R esult [facility] [address] [facility] Department of Laboratories [place], [place] [id number] * (ABNORMAL) Albumin Creatinine Ratio, Urine (06/29/2022 9:04 AM CATTLE SORTER) Creatinine, ur 40 20 - 275 mg/dL [...] within a diagnostic category. 06/29/2022 9:04 AM CATTLE SORTER 06/29/2022 9:06 AM CATTLE SORTER Narrative [facility] - 06/30/2022 12:50 PM CATTLE SORTER FASTING:YES FASTING: YES Charity Limon TIRE SPOTTER LAB URINE ORDERABLES Final Res ult Performing Organization Address City/[facility] Co de Phone Number [facility] [address] [place] [address] * (ABNORMAL) Hemoglobin A1c (06/29/2022 9:04 AM CATTLE SORTER) Hgb A1C 6.4(H) <5.7 % of total Hgb [facility] Comment: For someone without known diabetes, a [...] of diabetes for children. 06/29/2022 9:04 AM CATTLE SORTER 06/29/2022 9:06 AM CATTLE SORTER Narrative [facility] - 06/30/2022 12:50 PM CATTLE SORTER FASTING:YES FASTING: YES Charity Limon TIRE SPOTTER LAB BLOOD ORDERABLES Final Res ult Performing Organization Address City/[facility]/ZIP Co de Phone Number [facility] [address] [place] [address] * (ABNORMAL) Lipid panel (06/29/2022 9:04 AM CATTLE SORTER) Cholesterol 142 <200 mg/dL [facility] [...] LDL-C. Luke PEREZ et al. CRISTINA. 2013;310(19): 8975-7593 (http://[employer].EZbuildingEHS/faq/YPB434) Chol/HDL ratio 3.8 <5.0 (calc) [facility] Non-HDL, (LDL+VLDL) 105 <130 mg/dL (calc) [facility] Comment: For patients with diabetes plus 1 major ASCVD risk factor, treating to a non-HDL-C goal of <100 mg/dL (LDL-C of <70 mg/dL) is considered a therapeutic option. 06/29/2022 9:04 AM CATTLE SORTER 06/29/2022 9:06 AM CATTLE SORTER Narrative [facility] - 06/30/2022 12:50 PM CATTLE SORTER FASTING:YES FASTING: YES us Charity Limon NP LAB BLOOD ORDERABLES Final Res ult [facility] [employer] [address] [facility] [place] [address] * (ABNORMAL) Comprehensive metabolic panel (06/29/2022 9:04 AM CATTLE SORTER) Glucose 117(H) 65 - 99 mg/dL [facility] [...] U/L [facility] 06/29/2022 9:04 AM CATTLE SORTER 06/29/2022 9:06 AM CATTLE SORTER Narrative [facility] - 06/30/2022 12:50 PM CATTLE SORTER FASTING:YES FASTING: YES Charity Limon NP LAB BLOOD ORDERABLES Final Res ult [facility] [address] [place] [address] from Last 3 Months or Most Recently Relevant to Health Maintenance Insurance [facility] MEDICARE ADVANTAGE [facility] MEDIC[facility] ADVANTAGE Care Teams Electronic Resources Librarian Relationship Specialty Start Date End Date Henrique Vasquez MD PCP - General Family Practice 06/15/20 Pepe Campbell DO [address] [place] [address] Medical Oncologist/Slurry Mixer Hematology and Oncology 01/27/22
--- OUTSIDE RECORDS SUMMARY | 2025-01-14 15:15 | XMS_ITS | Clinical Summary ---
Author Organization [facility] Address [address] [place] [address] Phone Care Team Providers Care Egg Gatherer Name Role Phone Paige Mcgarry MD Primary Care Provider [phone] Allergies No known active allergies Medications aspirin (XENIA) 81 mg Oral Tab Take by mouth. Active FLUORIDE ION/MULTIVITAMIN S (MULTI-VITAMIN PO) Take by mouth. Active CALCIUM CARB/MAG OXIDE/VIT D3 (CALCIUM MAGNESIUM + D ORAL) Take by mouth. Active valsartan-Hydroc hlorothiazide (DIOVAN HCT) 320-12.5 mg Oral tablet Take 1 Tab by mouth daily. Active FLAXSEED OIL (OMEGA 3 ORAL)Indications :Diffuse cystic mastopathy Take by mouth. Active BOOSTRIX TDAP 2.5-8-5 Lf-mcg-Lf/0.5mL Syringe 03/20/2015 Active FLUZONE QUAD 8833-5481, PF, 60 mcg (15 mcg x 4)/0.5 mL Syringe syringe 03/20/2015 Act raza metFORMIN (GLUCOPHAGE) 1,000 mg tablet 500mg . 03/29/2015 Act raza amLODIPine (NORVASC) 5 mg tablet 04/09/2016 Active hydroxyurea (HYDREA) 500 mg capsule 03/29/2016 Active Active Problems Patient Care Coordination No te Formatting of this note migh t be different from the original. Primary Care: Paige Mcgarry MD Referring Provider: Brenda Dixon MD [address] [facility] [address] [place] [address] Other: Dr Josie Isaac recreation technician: Brenda Dixon Problem Noted Date Diagnosed Date Diffuse cystic mastopathy 01/02/2012 Unspecified essential hypertension Family History Medical History Relation Name Comments Cancer Brother esophagus passe d awat at age 42 Colon Cancer Father at age 77 Heart Disease Mother Cancer Sister lyphoma at age 22 Relation Name Status Comments Brother Father Mother Sister Social History Tobacco Use Types Packs/Day Years Used Date Smoking Tobacco: Former Smokeless Tobacco: Never Tobacco Cessation:Counseling Given: No Comments:1975 Alcohol Use Standard Drinks/Week Comments Yes 0 (1 standard drink = 0.6 oz pur e alcohol) Comments No Sex and Gender Information Value Date Recorded Sex Assigned at Not on file 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 Gender Identity Not on file Sexual Orientation Not on file Occupation Industry Job Start Date Job End Date Not on file Not on file Not on file Not on file Last Filed Vital Signs Vital Sign Reading Time Taken Comments Blood Pressure 127/79 04/18/2016 11:48 AM CDT Pulse 90 04/18/2016 11:48 AM CDT Temperature - - Respiratory Rate - - Oxygen Saturation - - Inhaled Oxygen Concentration - - Weight 85.3 kg (188 lb) 04/18/2016 11:48 AM CDT Height 162.6 cm (5' 4) 04/18/2016 11:48 AM CDT Body Mass Index 32.27 04/18/2016 11:48 AM CDT Plan of Treatment Health Maintenance Due Date Last Done Comments DTAP/TDAP/TD VACCINES (1 - Tdap) 1972 COLORECTAL SCREENING 1998 Colorectal Cancer Screening 1998 FIT-DNA Q 3 years 1998 FIT/FOBT Q 1 year 1998 Flex Sig/CT Colonography Q 5 years 1998 PNEUMOCOCCAL VACCINE 50+ YEA RS (1 of 1 - PCV) 10/25/2003 ZOSTER VACCINE (1 of 2) 10/25/2003 BREAST CANCER SCREENING 04/18/2017 04/18/20 16, 04/13/2015, 04/07/2014, Additional history exists OSTEOPOROSIS SCREENING 2018 INFLUENZA VACCINE (#1) 2025 RSV VACCINE (60+ or ) (1 - 1-dose 75+ series) 2028 Procedures Procedure Name Priority Date/Time Associated Diagnosis Comments MAMMO 3D DIPESH SCREEN BILAT W OR WO CAD Routine 04/18/2016 10:58 AM CDT Diffuse cystic mastopathy, unspecified laterality from Last 3 Months or Most Recently Relevant to Health Maintenance Results * MAMMO DIG SCREEN BILAT W 3D DIPESH (04/18/2016 10:58 AM CDT) Anatomical Region Laterality Modality Breast Bilateral Mammography 04/18/2016 10:5 8 AM CDT Impressions 04/18/2016 3:22 PM CDT IMPRESSION: Negative bilateral screening mammogram. Recommend routine followup. OVERALL ASSESSMENT: BI-RADS Category 1 - Negative Narrative 04/18/2016 3:22 PM CDT BILATERAL SCREENING DIGITAL MAMMOGRAMS WITH COMPUTER ASSISTED DIAGNOSIS WITH TOMOGRAPHY DATE: 04/18/2016 10:58 AM HISTORY: Annual screening. COMPARISON: 04/13/2015, 04/07/2014 and 03/18/2013. TECHNIQUE: A bilateral screening mammogram was performed. Low Dose full field Digital Breast tomosynthesis examination was performed with 2D and 3D acquisitions. Examination is read in conjunction with computer aided detection. BREAST COMPOSITION: Almost entirely fat FINDINGS: No new masses, suspicious calcifications, or areas of asymmetry or distortion are identified. The images were reviewed using the CAD system. Procedure Note Stephanie Neely MD - 04/18/2016 BILATERAL SCREENING DIGITAL MAMMOGRAMS WITH COMPUTER ASSISTED DIAGNOSIS WITH TOMOGRAPHY DATE: 04/18/2016 10:58 AM HISTORY: Annual screening. COMPARISON: 04/13/2015, 04/07/2014 and 03/18/2013. TECHNIQUE: A bilateral screening mammogram was performed. Low Dose full field Digital Breast tomosynthesis examination was performed with 2D and 3D acquisitions. Examination is read in conjunction with computer aided detection. BREAST COMPOSITION: Almost entirely fat FINDINGS: No new masses, suspicious calcifications, or areas of asymmetry or distortion are identified. The images were reviewed using the CAD system. IMPRESSION IMPRESSION: Negative bilateral screening mammogram. Recommend routine followup. OVERALL ASSESSMENT: BI-RADS Category 1 - Negative us Josie Isaac MD MAMMO ORDERABLES Final Resul t from Last 3 Months or Most Recently Relevant to Health Maintenance Insurance BS BLUE ACCESS/TRUE BLUE PPO Care Teams Egg Gatherer Relationship Specialty Start Date End Date Paige Mcgarry MD PCP - General Family Practice 03/18/13
== END 2025-01-14 15:13 | disposition home or self-care (01) ==
LOC: ANHIMG 15:13
PROVIDERS: PCP Family Medicine; Visit Provider Nurse Practitioner Family
DX: Z12.31 Encounter for screening mammogram for malignant neoplasm of breast (principal)
CPT/HCPCS: 77063; 77067

== ENCOUNTER 2025-01-28 11:02 | Outpatient (CLI) | payer MEDICARE, SELFPAY ==
--- NOTE | ~2025-01-28 | DEXA_ITS ---
Bone Density Report Name: ANTOINETTE LANDRY Age: 69 Sex: Female Ethnicity: White Date of : 1955 Indication: osteopenia; hysterectomy; Referring Provider: EFRAIN DIAZ Study: Bone densitometry was performed. Exam Date: January 28, 2025 Accession number: [id number] Bone Density: Region BMD T-score Z-score Classification AP Spine(L1-L4) 0.893 -1.4 0.8 Osteopenia Femoral Neck (Left) 0.736 -1.0 0.8 Normal Total Hip (Left) 0.897 -0.4 1.2 Normal Femoral Neck (Right) 0.636 -1.9 -0.1 Osteopenia Total Hip (Right) 0.864 -0.6 0.9 Normal Total Hip Mean 0.881 -0.5 1.1 Normal World Health Organization criteria for BMD impression classify patients as: Normal (T-score at or above -1.0), Osteopenia (T-score between -1.0 and -2.5), or Osteoporosis (T-score at or below -2.5). 10-year Fracture Risk(1): Major Osteoporotic Fracture 11% Hip Fracture 2.0% Reported Risk Factors: [place] (), Neck BMD=0.636, BMI=31.2 (1) FRAX(R) Version 3.08. Fracture probability calculated for an untreated patient. Fracture probability may be lower if the patient has received treatment. Previous Exams: Region Exam Age BMD T-score BMD Change BMD Change Date g/cm2 vs Baseline vs Previous AP Spine (L1-L4) 01/28/2025 69 0.893 -1.4 -0.047 (-5.0%) -0.037 (-3.9%) 06/13/2021 65 0.930 -1.1 -0.010 (-1.1%) 0.045 (5.0%)* 02/24/2019 63 0.885 -1.5 -0.055 (-5.8%) -0.062 (-6.5%) 01/21/2016 60 0.947 -0.9 0.007 (0.8%)# 0.007 (0.8%)# 03/28/2013 57 0.940 -1.0 Total Hip(Left) 01/28/2025 69 0.897 -0.4 -0.063 (-6.5%) -0.027 (-2.9%) 06/13/2021 65 0.925 -0.1 -0.035 (-3.7%) -0.043 (-4.5%) 02/24/2019 63 0.968 0.2 0.008 (0.8%) 0.040 (4.3%)# 01/21/2016 60 0.928 -0.1 -0.032 (-3.3%) -0.032 (-3.3%) 03/28/2013 57 0.960 0.1 Total Hip(Right) 01/28/2025 69 0.864 -0.6 -0.027 (-3.0%) -0.021 (-2.3%) 06/13/2021 65 0.884 -0.5 -0.006 (-0.7%) -0.034 (-3.7%) 02/24/2019 63 0.919 -0.2 0.028 (3.1%)* 0.040 (4.6%)# 01/21/2016 60 0.878 -0.5 -0.012 (-1.4%) -0.012 (-1.4%) 03/28/2013 57 0.891 -0.4 *Denotes significance at 95% confidence level, LSC for AP Spine = 0.022 g/cm2, LSC for Total Hip = 0.027 g/cm2 # Denotes dissimilar scan types or analysis methods Clinical Information Provided by Patient: Has used the following medications: Vitamin D, Calcium Has the following medical conditions: Hysterectomy, POLYCYTHEMIA VERA Patient maximum height was 64.0 No regular weight bearing exercise Does not regularly consume dairy products Drinks caffeinated beverages Onset of menses at age 10 Number of children 3 Impression: The patient has low bone mass, based on the Right Femoral Neck T-score. The patient has an estimated ten-year risk of hip fracture of 2% and an estimated ten-year risk of major fracture of 11%, based on the WHO FRAX algorithm. No significant bone loss was observed. Discussion: BONE DENSITY IS LOW AT ONE OR MORE SKELETAL SITES. This patient's lowest T-score is low at one or more skeletal sites. It meets the World Health Organization's (WHO) criteria for ?low bone mass? (T-score between -1.0 and -2.5). The patient's 10-year risk of fracture as calculated by FRAX is less than the threshold where pharmacological therapy is recommended by the National Osteoporosis Foundation (NOF). However, all treatment decisions require clinical judgment and consideration of individual patient factors, including patient preferences, comorbidities, previous drug use, risk factors not captured in the FRAX model (e.g., frailty, falls, vitamin D deficiency, increased bone turnover, interval significant decline in bone density) and possible under or overestimation of fracture risk by FRAX. The patient should follow a healthful lifestyle (good nutrition with adequate calcium and vitamin D, and appropriate weight-bearing exercise). Follow-Up: Consider repeating this study in 2 to 3 years to reassess this patient's status, or sooner if there is some new clinical indication. Reported by: LILLY on 01/28/2025 11:37:00 AM. Reviewed, dictated and finalized at location A.
--- OUTSIDE RECORDS SUMMARY | 2025-01-28 11:07 | XMS_ITS | Clinical Summary ---
Author Organization [facility] Address [address] [facility] [place] [address] Phone Care Team Providers Care Rug Cleaning Supervisor Name Role Phone Henrique Vasquez MD Primary Care Provider Pepe Campbell DO Unavailable [phone] Allergies No known active allergies Medications calcium [...] MOUTH DAILY 180 capsule 1 2024 Active atorvastatin (LIPITOR) 20 mg tablet 2024 Active Jardiance 10 mg tablet 2024 Active lisinopriL (PRINIVIL,ZE STRIL) 5 mg tablet 2024 Active hydroxyurea (HYDREA) 500 mg capsule [...] Encounters Date Type Department Care Team Description 01/23/2025 11:15 AM CDT Office Visit [facility] [address] [place] [address] [address] [place] [address] Pepe Campbell DO Polycythemia vera (Primary Dx) 12/03/2024 2:00 PM CDT Lab [facility] at [address] [address] Polycythemia vera (HCC) 11/05/2024 2:30 PM CDT Infusion [facility] at [address] [place] [id number] Polycythemia (Primary Dx); Polycythemia vera (HCC) 11/05/2024 2:00 PM CDT Lab [facility] at [address] [address] Polycythemia vera (HCC) from Last 3 Months Immunizations Immunization Administration Dates Next Due Influenza, Trivalent, Adjuva nted, Intramuscular 04/01/2019 Influenza, Unspecified 03/23/2021,2019,04/19/2018,04/05,04/05/2016,04/05/2015 Moderna SARS-CoV-2 Monovalen t Vaccination (12+ YRS) 04/12/2021,09/06/2020,08/04/2020 Pneumococcal Conjugate, Unspecified 04/05/2017,1 ZOSTER LIVE 04/05/2015 ZOSTER Recombinant 04/28/2019 Surgical History Surgery Date Site/Laterality Comments CHOLECYSTECTOMY HYSTERECTOMY BREAST BIOPSY COLONOSCOPY Medical History Medical History Date Comments Polycythemia rubra vera Diabetes mellitus (HCC) pre diab etic Hypertension Family History Medical History Relation Name Comments Esophageal cancer Brother Colon cancer Father Diabetes Mother Stomach cancer Paternal Grandmother Non-Hodgkin's Lymphoma Sister Relation Name Status Comments Brother Father Mother Paternal Grandmother Sister Social History Tobacco Use Types Packs/Day Years Used Date Smoking Tobacco: Former Cigarettes 0.3 15 1 949 - 1446 Smokeless Tobacco: Never Tobacco Cessation:Counseling Given: Yes [...] Sign Reading Time Taken Comments Blood Pressure 152/69 01/23/2025 11:21 AM CDT Pulse 68 01/23/2025 11:21 AM CDT Temperature 36.6 C (97.9 F) 01/23/2025 11:21 AM CDT Respiratory Rate 18 01/23/2025 11:2 1 AM CDT Oxygen Saturation 95% 01/23/2025 11: 21 AM CDT Inhaled Oxygen Concentration - - Weight 82.9 kg (182 lb 12.2 oz) 025 11:21 AM CDT with shoes Height 160.7 cm (5' 3.25) 06/20/2024 2 :10 PM MANUFACTURING TEST TECHNICIAN w/o shoes Body Mass Index 32.12 06/20/2024 2:10 PM MANUFACTURING TEST TECHNICIAN Plan of Treatment Health Maintenance Due Date [...] Pneumococcal vaccine 65+ (2 of 2 - PPSV23, PCV20, or PCV21) 05/31/2017 04/05/2017, 04/05/2016 Well Visit 65+ 2018 Zoster Vaccine (2 of 2) 06/23/2019 04/28/2019, 04/05 Hemoglobin A1C 12/27/2022 06/29/2022 Albumin Creatinine Ratio, Urine 06/29/2023 3 Lipid Panel 06/29/2023 06/29/2022 eGFR 06/29/2023 06/29/2022, 04/2 12/2021, 08/31/2021, Additional history exists Covid-19 Vaccine (4 - 2023-2 5 season) 2024 04/12/2021, 09/06/2020, 08/04/2020 Influenza Vaccine (#1) 2025 , 03/19/2020, 04/01/2019, Additional history exists Procedures Procedure Name Priority Date/Time Associated Diagnosis Comments CBC WITH AUTO DIFFERENTIAL Routine 01/20/2025 12:35 PM CDT DIFFERENTIAL AUTO Routine 12/03/2024 2:0 6 PM CDT Polycythemia vera (HCC) CBC WITH AUTO DIFFERENTIAL Routine 12/03/2024 2:06 PM CDT Polycythemia vera (HCC) DIFFERENTIAL AUTO Routine 11/05/2024 1:5 9 PM CDT Polycythemia vera (HCC) CBC WITH AUTO DIFFERENTIAL Routine 11/05/2024 1:59 PM CDT Polycythemia vera (HCC) COMPREHENSIVE METABOLIC PANEL Routine 06/29/2022 9:04 AM MANUFACTURING TEST TECHNICIAN HEMOGLOBIN A1C Routine 06/29/2022 9:04 AM MANUFACTURING TEST TECHNICIAN LIPID PANEL Routine 06/29/2022 9:04 AM MANUFACTURING TEST TECHNICIAN ALBUMIN CREATININE RATIO, URINE Routine 06/29/2022 9:04 AM MANUFACTURING TEST TECHNICIAN from Last 3 Months or Most Recently Relevant to Health Maintenance Results * (ABNORMAL) CBC with auto differential (01/20/2025 12:35 PM CDT) WBC 7.7 3.8 - 10.8 Thousand/u L [facility] RBC, POC 6.00(H) 3.80 - 5.10 Million/uL [facility] Hgb 12.4 11.7 - 15.5 g/dL [facility] Hct 46.1(H) 35.0 - 45.0 % [facility] MCV 76.8(L) 80.0 - 100.0 fL [facility] MCH 20.7(L) 27.0 - 33.0 pg [facility] MCHC 26.9(L) 32.0 - 36.0 g/dL [facility] Comment: For adults, a slight decrease in the calculated MCHC value (in the range of 30 to 32 g/dL) is most likely not clinically significant; however, it should be interpreted with caution in correlation with other red cell parameters and the patient's clinical condition. Rdw 18.3(H) 11.0 - 15.0 % [facility] Platelets 301 140 - 400 Thousand/u L [facility] MPV 9.6 7.5 - 12.5 fL [facility] Neutrophils, abs 6,360 1,500 - 7,800 cells/uL [facility] Lymphocytes, abs 886 850 - 3,900 cells/uL [facility] Monocyte abs 231 200 - 950 cells/uL [facility] Eosinophils, abs 162 15 - 500 cells/uL [facility] Basophils, abs 62 0 - 200 cells/uL [facility] Neutrophils 82.6 % [facility] Lymphocyte pct 11.5 % [facility] Monocytes 3.0 % [facility] Eosinophils 2.1 % [facility] Basophils 0.8 % [facility] 01/20/2025 12:3 5 PM CDT 01/20/2025 12:35 PM CDT Pepe Campbell DO LAB BLOOD ORDERABLES Final R esult [facility] [address] [place] [address] * Differential, auto (12/03/2024 2:06 PM CDT) Neutrophil abs 6.43 1.50 - 6.50 K/cumm Comment:Testing performed by : [address] [address] Imm gran abs 0.04 0.00 - 0.10 K/cumm [facility] Comment:Testing performed by : [address] [address] Lymphocyte abs 0.96 0.80 - 3.30 K/cumm [facility] Comment:Testing performed by : [address] [address] Monocyte abs 0.25 0.20 - 0.80 K/cumm [facility] Comment:Testing performed by : [address] [address] Eosinophil abs 0.18 0.00 - 0.50 K/cumm [facility] Comment:Testing performed by : [address] [address] Basophil abs 0.04 0.00 - 0.10 K/cumm [facility] Comment:Testing performed by : [address] [address] Neutrophil pct 81.3 % [facility] Comment: Interpretive Data Percent cell count reference ranges are not reported, since discordance with absolute values may lead to misinterpretation of CBC data. Current Interpretive Data was last revised on 2017. Testing performed by: [address] [address] Imm gran pct 0.5 % [facility] Comment: Interpretive Data Percent cell count reference ranges are not reported, since discordance with absolute values may lead to misinterpretation of CBC data. Current Interpretive Data was last revised on 2017. Testing performed by: [address] [address] Lymphocyte pct 12.2 % [facility] Comment: Interpretive Data Percent cell count reference ranges are not reported, since discordance with absolute values may lead to misinterpretation of CBC data. Current Interpretive Data was last revised on 2017. Testing performed by: [address] [address] Monocyte pct 3.2 % [facility] Comment: Interpretive Data Percent cell count reference ranges are not reported, since discordance with absolute values may lead to misinterpretation of CBC data. Current Interpretive Data was last revised on 2017. Testing performed by: [address] [address] Eosinophil pct 2.3 % [facility] Comment: Interpretive Data Percent cell count reference ranges are not reported, since discordance with absolute values may lead to misinterpretation of CBC data. Current Interpretive Data was last revised on 2017. Testing performed by: [address] [address] Basophil pct 0.5 % [facility] Comment: Interpretive Data Percent cell count reference ranges are not reported, since discordance with absolute values may lead to misinterpretation of CBC data. Current Interpretive Data was last revised on 2017. Testing performed by: [address] [address] Blood 12/03/2024 2:06 PM CDT 12/03/2024 2:10 PM CDT Pepe Campbell DO LAB BLOOD ORDERABLES Final R esult [facility] [address] [facility] Department [place] [address] * (ABNORMAL) CBC with auto differential (12/03/2024 2:06 PM CDT) WBC 7.90 3.80 - 9.90 K/cumm Comment:Testing performed by : [address] [address] Hgb 11.7(L) 11.9 - 15.5 g/dL [facility] Comment:Testing performed by : [address] [address] Hct 41.5 35.6 - 45.5 % [facility] Comment:Testing performed by : [address] [address] Plt 273 150 - 400 K/cumm [facility] Comment:Testing performed by : [address] [address] MPV 9.2 9.1 - 12.3 fL [facility] Comment:Testing performed by : [address] [address] RBC 5.74(H) 3.90 - 5.20 M/cumm [facility] Comment:Testing performed by : [address] [address] MCV 72.3(L) 81.3 - 96.4 fL [facility] Comment:Testing performed by : [address] [address] MCH 20.4(L) 27.1 - 33.3 pg [facility] Comment:Testing performed by : [address] [address] MCHC 28.2(L) 32.3 - 35.7 g/dL [facility] Comment:Testing performed by : [address] [address] RDW CV 18.6(H) 11.1 - 14.9 % [facility] Comment:Testing performed by : [address] [address] RDW SD 44.7 35.7 - 48.1 fL [facility] Comment:Testing performed by : [address] [address] NRBC abs 0.00 0.00 - 0.01 K/cumm [facility] Comment:Testing performed by : [address] [address] ANC Prelim 6.43 1.50 - 6.50 K/cumm [facility] Comment: Interpretive Data The rapid ANC is a preliminary automated count and may vary from the final ANC (Neut Abs) reported in the WBC differential that follows. Current interpretive data was last revised 2024. Testing performed by: [address] [address] Blood 12/03/2024 2:06 PM CDT 12/03/2024 2:10 PM CDT us Pepe Campbell DO LAB BLOOD ORDERABLES Final R esult [facility] [address] [facility] Department [place] [address] * Differential, auto (11/05/2024 1:59 PM CDT) Pathologist [facility] Neutrophil abs 6.39 1.50 - 6.50 K/cumm Comment:Testing performed by : [address] [address] Imm gran abs 0.03 0.00 - 0.10 K/cumm [facility] Comment:Testing performed by : [address] [address] Lymphocyte abs 1.15 0.80 - 3.30 K/cumm [facility] Comment:Testing performed by : [address] [address] Monocyte abs 0.35 0.20 - 0.80 K/cumm [facility] Comment:Testing performed by : [address] [address] Eosinophil abs 0.23 0.00 - 0.50 K/cumm [facility] Comment:Testing performed by : [address] [address] Basophil abs 0.04 0.00 - 0.10 K/cumm [facility] Comment:Testing performed by : [address] [address] Neutrophil pct 78.0 % [facility] Comment: Interpretive Data Percent cell count reference ranges are not reported, since discordance with absolute values may lead to misinterpretation of CBC data. Current Interpretive Data was last revised on 2017. Testing performed by: [address] [address] Imm gran pct 0.4 % [facility] Comment: Interpretive Data Percent cell count reference ranges are not reported, since discordance with absolute values may lead to misinterpretation of CBC data. Current Interpretive Data was last revised on 2017. Testing performed by: [address] [address] Lymphocyte pct 14.0 % [facility] Comment: Interpretive Data Percent cell count reference ranges are not reported, since discordance with absolute values may lead to misinterpretation of CBC data. Current Interpretive Data was last revised on 2017. Testing performed by: [address] [address] Monocyte pct 4.3 % [facility] Comment: Interpretive Data Percent cell count reference ranges are not reported, since discordance with absolute values may lead to misinterpretation of CBC data. Current Interpretive Data was last revised on 2017. Testing performed by: [address] [address] Eosinophil pct 2.8 % [facility] Comment: Interpretive Data Percent cell count reference ranges are not reported, since discordance with absolute values may lead to misinterpretation of CBC data. Current Interpretive Data was last revised on 2017. Testing performed by: [address] [address] Basophil pct 0.5 % [facility] Comment: Interpretive Data Percent cell count reference ranges are not reported, since discordance with absolute values may lead to misinterpretation of CBC data. Current Interpretive Data was last revised on 2017. Testing performed by: [address] [address] Blood 11/05/2024 1:59 PM CDT 11/05/2024 2:04 PM CDT us Pepe Campbell DO LAB BLOOD ORDERABLES Final R esult [facility] Department [place] [address] * (ABNORMAL) CBC with auto differential (11/05/2024 1:59 PM CDT) WBC 8.19 3.80 - 9.90 K/cumm Comment:Testing performed by : [address] [address] Hgb 12.4 11.9 - 15.5 g/dL [facility] Comment:Testing performed by : [address] [address] Hct 43.6 35.6 - 45.5 % [facility] Comment:Testing performed by : [address] [address] Plt 220 150 - 400 K/cumm [facility] Comment:Testing performed by : [address] [address] MPV 9.9 9.1 - 12.3 fL [facility] Comment:Testing performed by : [address] [address] RBC 6.10(H) 3.90 - 5.20 M/cumm [facility] Comment:Testing performed by : [address] [address] MCV 71.5(L) 81.3 - 96.4 fL [facility] Comment:Testing performed by : [address] [address] MCH 20.3(L) 27.1 - 33.3 pg [facility] Comment:Testing performed by : [address] [address] MCHC 28.4(L) 32.3 - 35.7 g/dL [facility] Comment:Testing performed by : [address] [address] RDW CV 19.1(H) 11.1 - 14.9 % [facility] Comment:Testing performed by : [address] [address] RDW SD 44.6 35.7 - 48.1 fL [facility] Comment:Testing performed by : [address] [address] NRBC abs 0.00 0.00 - 0.01 K/cumm [facility] Comment:Testing performed by : [address] [address] ANC Prelim 6.39 1.50 - 6.50 K/cumm [facility] Comment: Interpretive Data The rapid ANC is a preliminary automated count and may vary from the final ANC (Neut Abs) reported in the WBC differential that follows. Current interpretive data was last revised 2024. Testing performed by: [address] [address] Blood 11/05/2024 1:59 PM CDT 11/05/2024 2:04 PM CDT us Pepe Campbell DO LAB BLOOD ORDERABLES Final R esult [facility] [address] [facility] Department [place] [address] * (ABNORMAL) Albumin Creatinine Ratio, Urine (06/29/2022 9:04 AM MANUFACTURING TEST TECHNICIAN) Creatinine, ur 40 20 - 275 mg/dL [...] within a diagnostic category. 06/29/2022 9:04 AM MANUFACTURING TEST TECHNICIAN 06/29/2022 9:06 AM MANUFACTURING TEST TECHNICIAN Narrative [facility] - 06/30/2022 12:50 PM MANUFACTURING TEST TECHNICIAN FASTING:YES FASTING: YES us Charity Limon LAND MANAGEMENT FORESTER LAB URINE ORDERABLES Final Res ult Performing Organization Address [facility] Co de Phone Number QUE[facility] [address] [place] [address] * (ABNORMAL) Hemoglobin A1c (06/29/2022 9:04 AM MANUFACTURING TEST TECHNICIAN) Hgb A1C 6.4(H) <5.7 % of total Hgb [facility] Comment: For someone without known diabetes, [...] of diabetes for children. 06/29/2022 9:04 AM MANUFACTURING TEST TECHNICIAN 06/29/2022 9:06 AM MANUFACTURING TEST TECHNICIAN Narrative [facility] - 06/30/2022 12:50 PM MANUFACTURING TEST TECHNICIAN FASTING:YES FASTING: YES us Charity iLmon LAND MANAGEMENT FORESTER LAB BLOOD ORDERABLES Final Res ult Performing Organization Address [facility]/ZIP Co de Phone Number [facility]ST [facility] [address] [place] [address] * (ABNORMAL) Lipid panel (06/29/2022 9:04 AM MANUFACTURING TEST TECHNICIAN) Cholesterol 142 <200 mg/dL [facility] [...] equation in the estimation of LDL-C. Luke SS et al. CRISTINA. 2013;310(19): 0921-0611 (http://education.Flow Studio/faq/HPM421) Chol/HDL ratio 3.8 <5.0 (calc) [facility] Non-HDL, (LDL+VLDL) 105 <130 mg/dL (calc) [facility] Comment: For patients with diabetes plus 1 major ASCVD risk factor, treating to a non-HDL-C goal of <100 mg/dL (LDL-C of <70 mg/dL) is considered a therapeutic option. 06/29/2022 9:04 AM MANUFACTURING TEST TECHNICIAN 06/29/2022 9:06 AM MANUFACTURING TEST TECHNICIAN Narrative [facility] - 06/30/2022 12:50 PM MANUFACTURING TEST TECHNICIAN FASTING:YES FASTING: YES Charity Limon NP LAB BLOOD ORDERABLES Final Res ult [facility] [address] [place] [address] * (ABNORMAL) Comprehensive metabolic panel (06/29/2022 9:04 AM MANUFACTURING TEST TECHNICIAN) Glucose 117(H) 65 - 99 mg/dL [facility] [...] U/L [facility] 06/29/2022 9:04 AM MANUFACTURING TEST TECHNICIAN 06/29/2022 9:06 AM MANUFACTURING TEST TECHNICIAN Narrative [facility] - 06/30/2022 12:50 PM MANUFACTURING TEST TECHNICIAN FASTING:YES FASTING: YES us Charity Limon NP LAB BLOOD ORDERABLES Final Res ult [facility] [address] [place] [address] from Last 3 Months or Most Recently Relevant to Health Maintenance Insurance [facility] MEDICARE ADVANT[facility] MEDICARE Address: [place] [id number] UHC MEDICARE ADVANTAGE [facility] MEDICARE Address: [address] [place] [address] Care Teams Rug Cleaning Supervisor Relationship Specialty Start Date End Date Henrique Vasquez MD PCP - General Family Practice 06/15/20 Pepe Campbell DO [address] [place] [address] Medical Oncologist/[employer] Hematology and Oncology 01/27/22
--- OUTSIDE RECORDS SUMMARY | 2025-01-28 11:07 | XMS_ITS | Clinical Summary ---
Author Organization [facility] Address [address] [place] [address] Phone Care Team Providers Care Pump Technician Name Role Phone Paige Mcgarry MD Primary Care Provider [phone] Allergies No known active allergies Medications aspirin [...] 2.5-8-5 Lf-mcg-Lf/0.5mL Syringe 03/20/2015 Active FLUZONE QUAD 9680-3220, PF, 60 mcg (15 mcg x 4)/0.5 [...] MD Referring Provider: Brenda Dixon MD [address] [facility] [address] [place] [address] Other: Dr Josie Isaac air chief marshal: Brenda Dixon Problem Noted Date Diagnosed Date [...] on file Legal Sex Female 5:42 AM 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
== END 2025-01-28 11:03 | disposition home or self-care (01) ==
LOC: ANHIMG 11:03
PROVIDERS: PCP Family Medicine; Visit Provider Nurse Practitioner Family
DX: Z78.0 Asymptomatic menopausal state (principal); M85.88 Other specified disorders of bone density and structure, other site; M85.851 Other specified disorders of bone density and structure, right thigh
CPT/HCPCS: 77080

== ENCOUNTER 2025-03-18 00:11 | Day surgery (SDC) | payer MEDICARE, SELFPAY ==
[2025-03-05 09:50] VITALS: BMI 32.0
--- OUTSIDE RECORDS SUMMARY | 2025-03-18 00:14 | XMS_ITS | Clinical Summary ---
Author Organization [facility] Address [address] [facility] [place] [address] Phone Care Team Providers Care Silverlight Developer Name Role Phone Henrique Vasquez MD Primary Care Provider Pepe Campbell DO Unavailable [phone] Allergies No known active allergies Medications calcium carbonate-vit hsieh D3 600 mg calcium- 200 unit capsule 07/18/2017Calcium 500 + d, po solid 500 mg-400 TabletPOdailyCurrent Medication Active flaxseed 1,000 mg capsule 07/18/2017Flaxseed-fish- borage oil, po solid 400-400 mg CapsulePOdailyCurrent Medication Active amLODIPine (NORVASC) 10 mg tablet Active Lactobac no.41-Bifidob act no.7 70 mg (3 billion cell) capsule Active turmeric-herb al complex no.278 150 mg capsule 07/18/2017Turmeric (curcumin), po solid Capsule(s)POdailyCurrent Medication Active cholecalcifer ol (VITAMIN D-3) 400 unit capsule 07/18/2017Vitamin d, po solid 400 unit TabletPOdailyCurrent Medication Active Accu-Chek SmartView Test Strip strip USE ONE STRIP TO CHECK LEVELS DAILY Active metoprolol XL (TOPROL-XL) 100 mg 24 hr tablet Take 1 tablet (100 mg total) by mouth daily 021 Active aspirin 81 mg enteric coated tablet Take by mouth Ac tive metFORMIN XR (GLUCOPHAGE XR) 500 mg 24 hr tablet Take 2 tablets (1,000 mg total) by mouth 2 (two) times a day 024 Active hydroxyurea (HYDREA) 500 mg capsule TAKE 2 CAPSULES (1,000 MG TOTAL) BY MOUTH DAILY 180 capsule 1 025 Active atorvastatin (LIPITOR) 20 mg tablet 025 Active Jardiance 10 mg tablet 025 Active lisinopriL (PRINIVIL,ZES TRIL) 5 mg tablet 025 Active Active Problems Problem Noted Date Diagnosed Date Essential hypertension 10/15/2018 Polycythemia vera 11/30/2017 Polycythemia 10/30/2017 Overview (10/30/2017): Dx 09/2009 intermittent phlebotomies Q 3 months with daily low dose aspirin therapy Abnormal liver function tests 11/16/2014 Type 2 diabetes mellitus 11/16/2014 Encounters Date Type Department Care Team Description 02/27/2025 3:00 PM CDT Infusion [facility] at [address] [address] Polycythemia vera 02/27/2025 2:30 PM CDT Lab [facility] at [address] [address] Polycythemia vera 01/30/2025 3:00 PM CDT Infusion [facility] at [address] [place] [address] Polycythemia vera 01/30/2025 2:30 PM CDT Lab [facility] at [address] [address] Polycythemia vera 01/30/2025 Orders Only [facility] [address] [place] [address] [address] [place] [address] Pepe Campbell DO Polycythemia vera (Primary Dx) 01/23/2025 11:15 AM CDT Office Visit [facility] [address] [place] [phone] Pepe Campbell, DO Polycythemia vera (Primary Dx) from Last 3 Months Immunizations Immunization Administration Dates Next Due Influenza, Trivalent, Adjuva nted, Intramuscular 04/01/2019 Influenza, Unspecified 03/23/2021,2019,04/19/2018,04/05,04/05/2016,04/05/2015 Moderna SARS-CoV-2 Monovalen t Vaccination (12+ YRS) 04/12/2021,09/06/2020,08/04/2020 Pneumococcal Conjugate, Unspecified 04/05/2017,1 ZOSTER LIVE 04/05/2015 ZOSTER Recombinant 04/28/2019 Surgical History Surgery Date Site/Laterality Comments CHOLECYSTECTOMY HYSTERECTOMY BREAST BIOPSY COLONOSCOPY Medical History Medical History Date Comments Polycythemia rubra vera Diabetes mellitus pre diabetic Hypertension Family History Medical History Relation Name Comments Esophageal cancer Brother Colon cancer Father Diabetes Mother Stomach cancer Paternal Grandmother Non-Hodgkin's Lymphoma Sister Relation Name Status Comments Brother Father Mother Paternal Grandmother Sister Social History Tobacco Use Types Packs/Day Years Used Date Smoking Tobacco: Former Cigarettes 0.3 15 1 219 - [phone] Smokeless Tobacco: Never Tobacco Cessation:Counseling Given: Yes [...] Sign Reading Time Taken Comments Blood Pressure 112/71 02/27/2025 2:46 PM CDT Pulse 75 02/27/2025 2:46 PM CDT Temperature 37.2 C (99 F) 02/27/2025 2:46 PM CDT Respiratory Rate 16 02/27/2025 2:46 PM CDT Oxygen Saturation 93% 02/27/2025 2:46 PM CDT Inhaled Oxygen Concentration - - Weight 82.2 kg (181 lb 3.5 oz) 02/27/2025 2:46 P M CDT w/shoes Height 160.7 cm (5' 3.25) 06/20/2024 2:10 PM CS T w/o shoes Body Mass Index 31.85 06/20/2024 2:10 PM LIFE SUPPORT TECHNICIAN Plan of Treatment Health Maintenance Due Date Last Done Comments Colon Cancer Screening-Colonoscopy 1955 Depression Screening 1953 Fall Risk Assessment 1955 Hepatitis C Screening 1955 Osteoporosis Screening-Bone Density Scan 1955 Dilated Eye Exam 1955 Foot Exam 1955 Hepatitis B Screening 10/25/1971 Breast Cancer Screening-Mammogram 04/18/2017 04/18/2016, 04/18/2016, 04/13/2015, Additional history exists Well Visit 65+ 2018 Zoster Vaccine (2 of 2) 06/23/2019 04/28/2019, 04/05 Pneumococcal vaccine 65+ (3 of 3 - PCV20 or PCV21) 04/13/2022 04/13/2017, 04/05/2017, 04/05/2016 Hemoglobin A1C 12/27/2022 06/29/2022 Albumin Creatinine Ratio, Urine 06/29/2023 3 Lipid Panel 06/29/2023 06/29/2022 eGFR 06/29/2023 06/29/2022, 04/2 12/2021, 08/31/2021, Additional history exists Covid-19 Vaccine (4 - 2024-2 6 season) 2025 04/12/2021, 09/06/2020, 08/04/2020 Influenza Vaccine (#1) 2025 , 03/19/2020, 04/01/2019, Additional history exists DTaP/Tdap/Td Vaccine (2 - Td or Tdap) 04/10/2028 04/10/2018 Procedures Procedure Name Priority Date/Time Associated Diagnosis Comments DIFFERENTIAL AUTO Routine 02/27/2025 2:2 7 PM CDT Polycythemia vera CBC WITH AUTO DIFFERENTIAL Routine 02/27/2025 2:27 PM CDT Polycythemia vera DIFFERENTIAL AUTO Routine 01/30/2025 2:4 4 PM CDT Polycythemia vera CBC WITH AUTO DIFFERENTIAL Routine 01/30/2025 2:44 PM CDT Polycythemia vera CBC WITH AUTO DIFFERENTIAL Routine 01/20/2025 12:35 PM CDT COMPREHENSIVE METABOLIC PANEL Routine 06/29/2022 9:04 AM LIFE SUPPORT TECHNICIAN HEMOGLOBIN A1C Routine 06/29/2022 9:04 AM LIFE SUPPORT TECHNICIAN LIPID PANEL Routine 06/29/2022 9:04 AM LIFE SUPPORT TECHNICIAN ALBUMIN CREATININE RATIO, URINE Routine 06/29/2022 9:04 AM LIFE SUPPORT TECHNICIAN from Last 3 Months or Most Recently Relevant to Health Maintenance Results * (ABNORMAL) Differential, auto (02/27/2025 2:27 PM CDT) Neutrophil abs 7.20(H) 1.50 - 6.50 K/[facility]umm Comment:Testing performed by : [address] [address] Imm gran abs 0.02 0.00 - 0.10 K/cumm [facility] Comment:Testing performed by : [address] [address] Lymphocyte abs 0.89 0.80 - 3.30 K/cumm [facility] Comment:Testing performed by : [address] [address] Monocyte abs 0.19(L) 0.20 - 0.80 K/cumm [facility] Comment:Testing performed by : [address] [place]., [address] Eosinophil abs 0.23 0.00 - 0.50 K/cumm [facility] Comment:Testing performed by : [address] [address] Basophil abs 0.06 0.00 - 0.10 K/cumm [facility] Comment:Testing performed by : [address] [address] Neutrophil pct 83.8 % [facility] Comment: Interpretive Data Percent cell count reference ranges are not reported, since discordance with absolute values may lead to misinterpretation of CBC data. Current Interpretive Data was last revised on 2017. Testing performed by: [address] [address] Imm gran pct 0.2 % [facility] Comment: Interpretive Data Percent cell count reference ranges are not reported, since discordance with absolute values may lead to misinterpretation of CBC data. Current Interpretive Data was last revised on 2017. Testing performed by: [address] [address] Lymphocyte pct 10.4 % [facility] Comment: Interpretive Data Percent cell count reference ranges are not reported, since discordance with absolute values may lead to misinterpretation of CBC data. Current Interpretive Data was last revised on 2017. Testing performed by: [address] [address] Monocyte pct 2.2 % [facility] Comment: Interpretive Data Percent cell count reference ranges are not reported, since discordance with absolute values may lead to misinterpretation of CBC data. Current Interpretive Data was last revised on 2017. Testing performed by: [address] [address] Eosinophil pct 2.7 % [facility] Comment: Interpretive Data Percent cell count reference ranges are not reported, since discordance with absolute values may lead to misinterpretation of CBC data. Current Interpretive Data was last revised on 2017. Testing performed by: [address] [address] Basophil pct 0.7 % [facility] Comment: Interpretive Data Percent cell count reference ranges are not reported, since discordance with absolute values may lead to misinterpretation of CBC data. Current Interpretive Data was last revised on 2017. Testing performed by: [address] [address] Blood 02/27/2025 2:27 PM CDT 02/27/2025 2:43 PM CDT Pepe Campbell DO LAB BLOOD ORDERABLES Final [facility]ult [facility] [address] [facility] Department [place] [address] * (ABNORMAL) CBC with auto differential (02/27/2025 2:27 PM CDT) WBC 8.59 3.80 - 9.90 [facility] Comment:Testing performed by : [address] [address] Hgb 11.8(L) 11.9 - 15.5 g/dL [facility] Comment:Testing performed by : [address] [address] Hct 42.1 35.6 - 45.5 % [facility] Comment:Testing performed by : [address] [address] Plt 284 150 - 400 K/cumm [facility] Comment:Testing performed by : [address] [address] MPV 9.5 9.1 - 12.3 fL [facility] Comment:Testing performed by : [address] [address] RBC 5.77(H) 3.90 - 5.20 M/cumm [facility] Comment:Testing performed by : [address] [address] MCV 73.0(L) 81.3 - 96.4 fL [facility] Comment:Testing performed by : [address] [address] MCH 20.5(L) 27.1 - 33.3 pg [facility] Comment:Testing performed by : [address] [address] MCHC 28.0(L) 32.3 - 35.7 g/dL [facility] Comment:Testing performed by : [address] [address] RDW CV 18.9(H) 11.1 - 14.9 % [facility] Comment:Testing performed by : [address] [address] RDW SD 46.2 35.7 - 48.1 fL [facility] Comment:Testing performed by : [address] [address] NRBC abs 0.00 0.00 - 0.01 K/cumm [facility] Comment:Testing performed by : [address] [address] ANC Prelim 7.20(H) 1.50 - 6.50 K/cumm [facility] Comment: Interpretive Data The rapid ANC is a preliminary automated count and may vary from the final ANC (Neut Abs) reported in the WBC differential that follows. Current interpretive data was last revised 2024. Testing performed by: [address] [address] Blood 02/27/2025 2:27 PM CDT 02/27/2025 2:43 PM CDT us Pepe Campbell DO LAB BLOOD ORDERABLES Final R esult [facility] [address] [facility] Department [place] [address] * Differential, auto (01/30/2025 2:44 PM CDT) Neutrophil abs 5.92 1.50 - 6.50 [facility] Comment:Testing performed by : [address] [address] Imm gran abs 0.04 0.00 - 0.10 K/cumm [facility] Comment:Testing performed by : [address] [address] Lymphocyte abs 1.22 0.80 - 3.30 K/cumm [facility] Comment:Testing performed by : [address] [address] Monocyte abs 0.38 0.20 - 0.80 K/cumm [facility] Comment:Testing performed by : [address] [address] Eosinophil abs 0.23 0.00 - 0.50 K/cumm [facility] Comment:Testing performed by : [address], [place]., [address] Basophil abs 0.06 0.00 - 0.10 K/cumm [facility] Comment:Testing performed by : [address] [address] Neutrophil pct 75.5 % [facility] Comment: Interpretive Data Percent cell count reference ranges are not reported, since discordance with absolute values may lead to misinterpretation of CBC data. Current Interpretive Data was last revised on 2017. Testing performed by: [address] [address] Imm gran pct 0.5 % [facility] Comment: Interpretive Data Percent cell count reference ranges are not reported, since discordance with absolute values may lead to misinterpretation of CBC data. Current Interpretive Data was last revised on 2017. Testing performed by: [address] [address] Lymphocyte pct 15.5 % [facility] Comment: Interpretive Data Percent cell count reference ranges are not reported, since discordance with absolute values may lead to misinterpretation of CBC data. Current Interpretive Data was last revised on 2017. Testing performed by: [address] [address] Monocyte pct 4.8 % [facility] Comment: Interpretive Data Percent cell count reference ranges are not reported, since discordance with absolute values may lead to misinterpretation of CBC data. Current Interpretive Data was last revised on 2017. Testing performed by: [address] [address] Eosinophil pct 2.9 % [facility] Comment: Interpretive Data Percent cell count reference ranges are not reported, since discordance with absolute values may lead to misinterpretation of CBC data. Current Interpretive Data was last revised on 2017. Testing performed by: [address] [address] Basophil pct 0.8 % [facility] Comment: Interpretive Data Percent cell count reference ranges are not reported, since discordance with absolute values may lead to misinterpretation of CBC data. Current Interpretive Data was last revised on 2017. Testing performed by: [address] [address] Blood 01/30/2025 2:44 PM CDT 01/30/2025 2:45 PM CDT Pepe Campbell DO LAB BLOOD ORDERABLES Final R esult [facility] [address] [facility] Department [place] [address] * (ABNORMAL) CBC with auto differential (01/30/2025 2:44 PM CDT) WBC 7.85 3.80 - 9.90 [facility] Comment:Testing performed by : [address] [address] Hgb 13.0 11.9 - 15.5 g/dL [facility] Comment:Testing performed by : [address] [address] Hct 45.3 35.6 - 45.5 % [facility] Comment:Testing performed by : [address] [address] Plt 171 150 - 400 K/cumm [facility] Comment:Testing performed by : [address] [address] MPV 9.1 9.1 - 12.3 fL [facility] Comment:Testing performed by : [address] [address] RBC 6.24(H) 3.90 - 5.20 M/cumm [facility] Comment:Testing performed by : [address] [address] MCV 72.6(L) 81.3 - 96.4 fL [facility] Comment:Testing performed by : [address] [address] MCH 20.8(L) 27.1 - 33.3 pg [facility] Comment:Testing performed by : [address] [address] MCHC 28.7(L) 32.3 - 35.7 g/dL [facility] Comment:Testing performed by : [address] [address] RDW CV 19.3(H) 11.1 - 14.9 % [facility] Comment:Testing performed by : [address] [address] RDW SD 45.6 35.7 - 48.1 fL [facility] Comment:Testing performed by : [address] [address] NRBC abs 0.03(H) 0.00 - 0.01 K/cumm [facility] Comment:Testing performed by : [address] [address] ANC Prelim 5.92 1.50 - 6.50 K/cumm [facility] Comment: Interpretive Data The rapid ANC is a preliminary automated count and may vary from the final ANC (Neut Abs) reported in the WBC differential that follows. Current interpretive data was last revised 2024. Testing performed by: [address] [address] Blood 01/30/2025 2:44 PM CDT 01/30/2025 2:45 PM CDT us Pepe Campbell DO LAB BLOOD ORDERABLES Final R esult [facility] [address] [facility] Department [place] [address] * (ABNORMAL) CBC with auto differential (01/20/2025 12:35 PM CDT) [facility] WBC 7.7 3.8 - 10.8 Thousand/u L [facility] RBC, POC 6.00(H) 3.80 - 5.10 Million/uL [facility] Hgb 12.4 11.7 - 15.5 g/dL [facility] Hct 46.1(H) 35.0 - 45.0 % [facility] [...] DO LAB BLOOD ORDERABLES Final R esult [facility] [address] [place] [address] * (ABNORMAL) Albumin Creatinine Ratio, Urine (06/29/2022 9:04 AM LIFE SUPPORT TECHNICIAN) Creatinine, ur 40 20 - 275 [...] within a diagnostic category. 06/29/2022 9:04 AM LIFE SUPPORT TECHNICIAN 06/29/2022 9:06 AM LIFE SUPPORT TECHNICIAN Narrative [facility] - 06/30/2022 12:50 PM LIFE SUPPORT TECHNICIAN FASTING:YES FASTING: YES Charity Limon NP LAB URINE ORDERABLES Final Res ult [facility] [address] [place] [address] * (ABNORMAL) Hemoglobin A1c (06/29/2022 9:04 AM LIFE SUPPORT TECHNICIAN) Hgb A1C 6.4(H) <5.7 % of total Hgb [facility] Comment: For someone without known diabetes, [...] of diabetes for children. 06/29/2022 9:04 AM LIFE SUPPORT TECHNICIAN 06/29/2022 9:06 AM LIFE SUPPORT TECHNICIAN Narrative [facility] - 06/30/2022 12:50 PM LIFE SUPPORT TECHNICIAN FASTING:YES FASTING: YES Charity Limon [employer] LAB BLOOD ORDERABLES Final Res ult [facility] [address] [place] [address] * (ABNORMAL) Lipid panel (06/29/2022 9:04 AM LIFE SUPPORT TECHNICIAN) Cholesterol 142 <200 mg/dL [facility] [...] LDL-C. Luke PEREZ et al. CRISTINA. 2013;310(19): 2119-0472 (http://education.Nimbic (formerly [employer])/faq/GFC395) Chol/HDL ratio 3.8 <5.0 (calc) [facility] Non-HDL, (LDL+VLDL) 105 <130 mg/dL (calc) [facility] Comment: For patients with diabetes plus 1 major ASCVD risk factor, treating to a non-HDL-C goal of <100 mg/dL (LDL-C of <70 mg/dL) is considered a therapeutic option. 06/29/2022 9:04 AM LIFE SUPPORT TECHNICIAN 06/29/2022 9:06 AM LIFE SUPPORT TECHNICIAN Narrative [facility] - 06/30/2022 12:50 PM LIFE SUPPORT TECHNICIAN FASTING:YES FASTING: YES us Charity Limon [employer] INS[employer] LAB BLOOD ORDERABLES Final Res ult [facility] [address] [place] [address] * (ABNORMAL) Comprehensive metabolic panel (06/29/2022 9:04 AM LIFE SUPPORT TECHNICIAN) [facility] Glucose 117(H) 65 - 99 mg/dL [facility] [...] U/L [facility] 06/29/2022 9:04 AM LIFE SUPPORT TECHNICIAN 06/29/2022 9:06 AM LIFE SUPPORT TECHNICIAN Narrative [facility] - 06/30/2022 12:50 PM LIFE SUPPORT TECHNICIAN FASTING:YES FASTING: YES us Charity Limon [employer] MAT[employer] INSPECTOR LAB BLOOD ORDERABLES Final Res ult [facility] [address] [address] [place] [phone] from Last 3 Months or Most Recently Relevant to Health Maintenance Insurance [facility] [employer] [employer] Member Subscriber Plan / Payer ( fective 2022-Present) Name:Reina Downey Relation to Subscriber:Self Name:Reina Downey Payer ID:[id number] (NAIC) Type:[facility] Address: [place] [id number] [facility] [employer] Member Subscriber Plan / Payer (Ef fective 2022-Present) Name:Reina Downey Relation to Subscriber:Self Name:Reina Downey Payer ID:[id number] (NAIC) Type:[facility] [employer] Address: [place] [id number] [place] [phone] Care Teams Silverlight Developer Relationship Specialty Start Date End Date Henrique Vasquez MD PCP - General Family Practice 06/15/20 Pepe Campbell DO [address] [place] [address] Medical Oncologist/Gaming Cage Worker Hematology and Oncology 01/27/22
--- OUTSIDE RECORDS SUMMARY | 2025-03-18 00:14 | XMS_ITS | Clinical Summary ---
Author Organization [facility] [place] Address [address] [place] [address] Phone Care Team Providers Care As400 Administrator Name Role Phone Paige Mcgarry MD Primary Care Provider [phone] Allergies No known active allergies Medications aspirin [...] 2.5-8-5 Lf-mcg-Lf/0.5mL Syringe 03/20/2015 Active FLUZONE QUAD 1086-9164, PF, 60 mcg (15 mcg x 4)/0.5 [...] MD Referring Provider: Brenda Dixon MD [address] [facility] [address] [place] [address] Other: Dr Josie Isaac cotton feeder: Brenda Dixon Problem Noted Date Diagnosed Date [...] on file Legal Sex Female 5:42 AM 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
[2025-03-18 08:23] VITALS: BP 163/66; PULSE 104; RESP 18; TEMP 37.1; O2SAT 93
[2025-03-18] MEDS: LACTATED RINGERS 1,000 ML 150 ML IV CONT (08:39)
--- NOTE | 2025-03-18 09:19 | WPDANESEPPF ---
Anes - Initial Pre Proc Eval Procedure: Operation Date: 03/18/25 09:30 Proposed Procedures p Screening Colonoscopy - Pako Mcmahan MD Date/Time: 03/18/25 09:19 Surgeon: Pako Mcmahan MD Pre Op Diagnosis: Personal history of colon polyps, unspecified Patient Data Age: 69 Gender: F Height: 1.6 m Weight: 79.5 kg Last Vital Signs Temp 98.8 F 03/18/25 08:23 Pulse 104 H 03/18/25 08:23 Resp 18 03/18/25 08:23 BP 163/66 H 03/18/25 08:23 Pulse Ox 93 03/18/25 08:23 O2 Del Method Room Air 03/18/25 08:23 Allergies Allergy/AdvReac Type Severity Reaction Status Date / Time Solanum- Nightshade Allergy Severe sores Verified 03/18/25 08:22 Vegetables Home Medications ?Medication ?Instructions ?Recorded ?Confirmed ?Type aspirin 81 mg tablet,delayed 81 mg PO DAILY 10/07/19 03/05/25 History release (Adult Low Dose Aspirin) calcium carbonate 600 mg PO DAILY 10/07/19 03/05/25 History cholecalciferol (vitamin D3) 50 50 mcg PO DAILY 10/07/19 03/05/25 History mcg (2,000 unit) capsule lactobacillus combination no.8 3 3,000 mmu cells PO DAILY 07/01/20 03/05/25 History billion cell capsule (Adult Probiotic) omega-3-dha 120 mg-epa 180 mg-fish 1 cap PO DAILY 07/01/20 03/05/25 History oil-vitamin D3 1,000 unit capsule blood-glucose meter (OneTouch #1 ea 06/26/22 07/01/24 Rx Ultra2 Meter) blood sugar diagnostic (OneTouch #100 ea 08/11/22 07/01/24 Rx Ultra Test strips) hydroxyurea 500 mg capsule 1,000 mg PO DAILY 07/12/23 03/05/25 History blood sugar diagnostic (Accu-Chek #100 ea 08/25/24 Rx Brenda Plus test strips) metoprolol succinate 100 mg See Rx Instructions .Route 11/13/24 03/18/25 Rx tablet,extended release 24 hr .COMPLEX #90 tabs lisinopril 5 mg tablet 5 mg PO DAILY #90 tabs 12/25/24 Rx atorvastatin 20 mg tablet (Lipitor) 20 mg PO QHS #90 tabs 01/08/25 03/05/25 Rx empagliflozin 10 mg tablet 10 mg PO QAM #90 tabs 01/09/25 03/05/25 Rx (Jardiance) metformin 500 mg tablet,extended 1,000 mg (2 x 500 mg) PO DAILY 01/22/25 03/05/25 Rx release 24 hr #180 tabs amlodipine 10 mg tablet 10 mg PO HS 03/05/25 03/05/25 History turmeric 400 mg capsule 400 mg PO DAILY 03/05/25 03/05/25 History Laboratory Tests 03/18/25 08:36 POC Capillary Glucose 159 H mg/dl (65-105) Patient hx anesthesia problems: none Family hx anesthesia problems: none Results Review: All pre-operative results and documents have been reviewed as part of the pre-operative evaluation. [facility] Past Medical History Medical History Elevated LFTs Dyslipidemia Essential (primary) hypertension History of colon polyps Family history of colon cancer in father Diabetes H/O adenomatous polyp of colon (~2009) FH: colon cancer in relative diagnosed at >50 years old father dx'd & @ 77 y/o son dx'd w/ polyps @ 27 y/o Surgical History Surgical History History of hysterectomy 1999 H/O breast biopsy x3: late [id number]'s last mammogram: Jan 2019: normal S/P cholecystectomy (~1998) Family History Family History Father Carcinoma of colon Sibling , @ 22 y/o Non-Hodgkin's lymphoma, Onset Age: 22 in year of dx 1985 Sibling , dx'd & @ 42 y/o Esophageal cancer Sibling Diabetes mellitus Colon polyp Leukemia, chronic brother: since 2011 Social History Social History Smoking status: Former smoker Tobacco type: cigarettes Alcohol intake: never Drinks per week: 1 Alcohol use details: 1/month Substance use: never Substance use type: does not use Do You Feel Safe in your Home?: Yes Lack of Transportation: No Lack of Food: Never True Current Housing: I Have Housing Concerned About Future Housing: No Difficulty Paying Gas/Electric Bills: No Difficulty Paying for Meds: No Currently Unemployed: No Education: Master's Degree or Higher Difficulty w/ Childcare or Family Care: No Living arrangements: with family Occupation/Education: retired Additional occupation/education comments: education: 40(+): HS x12 years, then community college: math: then administration: GED Gender identity (if verbalized by the patient): Female Sexual Orientation (if Verbalized by the Patient): Straight or Heterosexual Spiritual care concerns: No Agree to blood products: Yes Anes - Eval Final PreProcedure Day of Procedure 03/18/25 09:19 Patient weight: obese Lungs: normal air movement Airway: Mallampati scale class II Neurological: alert and oriented Last oral intake: >/= 8 hours ASA classification: III Emergent: no Anesthetic plan: proceed Anesthesia type and monitoring: general GIVS and standard monitoring Results Review: All pre-operative results and documents have been reviewed as part of the pre-operative evaluation. HTN, hyperlipidemia, DM fsbs 159. Informed Consent: The patient's anesthetic plan and its attendant risks and benefits were discussed with the patient/family/POA. Questions were solicited and answers provided to the satisfaction of the patient/family/POA.
--- NOTE | 2025-03-18 09:39 | PM.IMHP ---
H&P: HPI History of Present Illness Date/Time: 03/18/25 09:39 Chief Complaint: History of colon polyps Narrative: The patient has a history of colonic polyps, the last colonoscopy was approximately 5 years ago. her father had colon cancer at age 77. Review of Systems Review of Systems: All systems reviewed & are unremarkable except as noted in HPI and below PMFSH Past Medical History Medical History Elevated LFTs Dyslipidemia Essential (primary) hypertension History of colon polyps Family history of colon cancer in father Diabetes H/O adenomatous polyp of colon (~2009) FH: colon cancer in relative diagnosed at >50 years old father dx'd & @ 77 y/o son dx'd w/ polyps @ 27 y/o Surgical History Surgical History History of hysterectomy 1999 H/O breast biopsy x3: late [id number]'s last mammogram: Jan 2019: normal S/P cholecystectomy (~1998) Family History Family History Father Carcinoma of colon Sibling , @ 22 y/o Non-Hodgkin's lymphoma, Onset Age: 22 in year of dx 1985 Sibling , dx'd & @ 42 y/o Esophageal cancer Sibling Diabetes mellitus Colon polyp Leukemia, chronic brother: since 2011 Social History Social History Smoking status: Former smoker Tobacco type: cigarettes Alcohol intake: never Drinks per week: 1 Alcohol use details: 1/month Substance use: never Substance use type: does not use Do You Feel Safe in your Home?: Yes Lack of Transportation: No Lack of Food: Never True Current Housing: I Have Housing Concerned About Future Housing: No Difficulty Paying Gas/Electric Bills: No Difficulty Paying for Meds: No Currently Unemployed: No Education: Master's Degree or Higher Difficulty w/ Childcare or Family Care: No Living arrangements: with family Occupation/Education: retired Additional occupation/education comments: education: 40(+): HS x12 years, then community college: math: then administration: GED Gender identity (if verbalized by the patient): Female Sexual Orientation (if Verbalized by the Patient): Straight or Heterosexual Spiritual care concerns: No Agree to blood products: Yes Meds Home Medications and Allergies Home Medications ?Medication ?Instructions ?Recorded ?Confirmed ?Type aspirin 81 mg tablet,delayed 81 mg PO DAILY 10/07/19 03/05/25 History release (Adult Low Dose Aspirin) calcium carbonate 600 mg PO DAILY 10/07/19 03/05/25 History cholecalciferol (vitamin D3) 50 50 mcg PO DAILY 10/07/19 03/05/25 History mcg (2,000 unit) capsule lactobacillus combination no.8 3 3,000 mmu cells PO DAILY 07/01/20 03/05/25 History billion cell capsule (Adult Probiotic) omega-3-dha 120 mg-epa 180 mg-fish 1 cap PO DAILY 07/01/20 03/05/25 History oil-vitamin D3 1,000 unit capsule blood-glucose meter (OneTouch #1 ea 06/26/22 07/01/24 Rx Ultra2 Meter) blood sugar diagnostic (OneTouch #100 ea 08/11/22 07/01/24 Rx Ultra Test strips) hydroxyurea 500 mg capsule 1,000 mg PO DAILY 07/12/23 03/05/25 History blood sugar diagnostic (Accu-Chek #100 ea 08/25/24 Rx Brenda Plus test strips) metoprolol succinate 100 mg See Rx Instructions .Route 11/13/24 03/18/25 Rx tablet,extended release 24 hr .COMPLEX #90 tabs lisinopril 5 mg tablet 5 mg PO DAILY #90 tabs 12/25/24 Rx atorvastatin 20 mg tablet (Lipitor) 20 mg PO QHS #90 tabs 01/08/25 03/05/25 Rx empagliflozin 10 mg tablet 10 mg PO QAM #90 tabs 01/09/25 03/05/25 Rx (Jardiance) metformin 500 mg tablet,extended 1,000 mg (2 x 500 mg) PO DAILY 01/22/25 03/05/25 Rx release 24 hr #180 tabs amlodipine 10 mg tablet 10 mg PO HS 03/05/25 03/05/25 History turmeric 400 mg capsule 400 mg PO DAILY 03/05/25 03/05/25 History Allergies Allergy/AdvReac Type Severity Reaction Status Date / Time Solanum- Nightshade Allergy Severe sores Verified 03/18/25 08:22 Vegetables Vital Signs Vital Signs - 24 hr 03/18/25 08:23 Temperature 98.8 F Pulse Rate 104 H Respiratory Rate 18 Blood Pressure 163/66 H Pulse Oximetry 93 Oxygen Delivery Room Air Exam Const: General: cooperative and healthy appearing Resp: Effort & Inspection: normal respiratory effort and able to speak in complete sentences Auscultation: clear to auscultation bilaterally Cardio: Rate: regular rate Rhythm: regular rhythm GI: Inspection: normal to inspection GI Palp: No No hepatosplenomegaly present Auscultation: normal bowel sounds Rectal Exam: deferred Skin: General skin exam: normal color Psych: Appearance: grossly normal Mental Status: mental status grossly normal Assessment and Plan Assessment and plan (1) History of colonic polyps: Code(s): Z86.0100 - Personal history of colon polyps, unspecified Status: Acute Assessment and Plan: The patient is deemed a good candidate for the procedure. Consent signed. Will proceed.
[2025-03-18 10:07] VITALS: BP 127/61; PULSE 84; RESP 20; O2SAT 95
[2025-03-18 10:17] VITALS: BP 118/61; PULSE 81; RESP 20; O2SAT 94
[2025-03-18 10:27] VITALS: BP 135/68; PULSE 76; RESP 20; O2SAT 94
== END 2025-03-18 10:43 | disposition home or self-care (01) ==
PROVIDERS: PCP Family Medicine; Referring Provider Nurse Practitioner Family; Visit Provider Internal Medicine Gastroenterology
PROC: 0DJD8ZZ Inspection of Lower Intestinal Tract, Via Natural or Artificial Opening Endoscopic (ICD-10-PCS; CPT 45378; principal; 2025-03-18 09:30)
DX: Z12.11 Encounter for screening for malignant neoplasm of colon (principal); K64.8 Other hemorrhoids; K57.30 Diverticulosis of large intestine without perforation or abscess without bleeding; E78.5 Hyperlipidemia, unspecified; I10 Essential (primary) hypertension; E11.9 Type 2 diabetes mellitus without complications; E66.9 Obesity, unspecified; Z68.31 Body mass index [BMI] 31.0-31.9, adult; Z79.82 Long term (current) use of aspirin; Z79.84 Long term (current) use of oral hypoglycemic drugs; Z98.890 Other specified postprocedural states; Z90.49 Acquired absence of other specified parts of digestive tract; Z87.891 Personal history of nicotine dependence; Z86.0100 Personal history of colon polyps, unspecified; Z80.6 Family history of leukemia; Z83.719 Family history of colon polyps, unspecified; Z80.0 Family history of malignant neoplasm of digestive organs; Z80.7 Family history of other malignant neoplasms of lymphoid, hematopoietic and related tissues
CPT/HCPCS: G0105; 82948; J2003; J2704; J7120